=== PATIENT | male | born 1960 | race Caucasian/White ===

== ENCOUNTER 2017-07-28 22:36 | Inpatient (IN) | payer MEDICARE ==
[2017-07-28] MEDS ORDERED: SODIUM CHLORIDE 0.9% 500 ML IV STA (22:54)
--- NOTE | 2017-07-28 22:54 | ED ---
General Adult HPI - General Chief complaint: Overdose Stated complaint: Altered Mental Status Time Seen by Provider: 07/28/17 22:53 Source: family, EMS, RN notes reviewed, old records reviewed Mode of arrival: EMS Limitations: no limitations - History of Present Illness Initial comments: This is a 57-year-old male the ER for evaluation of unresponsiveness decreased responsiveness. Patient has history of depression. Denies suicide attempt tonight. Patient is does admit to taking increased amount of cervical. Patient denies suicide attempt again. Denies any other drugs or alcohol - Related Data Home Medications Medication Instructions Recorded Confirmed ALPRAZolam [Alprazolam] 0.5 mg PO BID 03/09/16 03/13/16 Citalopram Hydrobromide 40 mg PO QAM 03/09/16 03/13/16 [Citalopram HBr] Gabapentin [Gabapentin] 600 mg PO BID 03/09/16 03/13/16 QUEtiapine [SEROquel] 100 mg PO QAM 03/09/16 03/13/16 Allergies Allergy/AdvReac Type Severity Reaction Status Date / Time venom-honey bee Allergy Swelling Verified 03/09/16 12:43 [bee venom (honey bee)] Review of Systems ROS Statement: Those systems with pertinent positive or pertinent negative responses have been documented in the HPI. ROS Other: All systems not noted in ROS Statement are negative. Past Medical History Past Medical History: Hypertension Additional Past Medical History / Comment(s): Back pain. INSOMNIA. History of Any Multi-Drug Resistant Organisms: None Reported Past Surgical History: No Surgical Hx Reported Additional Past Surgical History / Comment(s): Pts admits that pt has had history of overdoses, (unaware if intentinonal) pt does have opoid abuse history. Pt is to test 3x weekly on serouquel. Past Anesthesia/Blood Transfusion Reactions: No Reported Reaction Additional Past Anesthesia/Blood Transfusion Reaction / Comment(s): NEVER HAS HAD ANESTHESIA. Past Psychological History: Anxiety, Bipolar, Depression Smoking Status: Current every day smoker Past Alcohol Use History: None Reported Past Drug Use History: Opiates, Prescription Drug Abuse - Past Family History Father Family Medical History: Coronary Artery Disease (CAD), Diabetes Mellitus Mother Family Medical History: Dementia General Exam Limitations: no limitations General appearance: alert, in no apparent distress Head exam: Present: atraumatic, normocephalic, normal inspection Eye exam: Present: normal appearance, PERRL, EOMI. Absent: scleral icterus, conjunctival injection, periorbital swelling ENT exam: Present: normal exam, mucous membranes moist Neck exam: Present: normal inspection. Absent: tenderness, meningismus, lymphadenopathy Respiratory exam: Present: normal lung sounds bilaterally. Absent: respiratory distress, wheezes, rales, rhonchi, stridor Cardiovascular Exam: Present: regular rate, normal rhythm, normal heart sounds. Absent: systolic murmur, diastolic murmur, rubs, gallop, clicks GI/Abdominal exam: Present: soft, normal bowel sounds. Absent: distended, tenderness, guarding, rebound, rigid Extremities exam: Present: normal inspection, full ROM, normal capillary refill. Absent: tenderness, pedal edema, joint swelling, calf tenderness Back exam: Present: normal inspection Neurological exam: Present: alert, oriented X3, CN II-XII intact Psychiatric exam: Present: normal affect, normal mood Skin exam: Present: warm, dry, intact, normal color. Absent: rash Course Vital Signs 07/28/17 22:38 Temperature 97.0 F L Pulse Rate 82 Respiratory 16 Rate Blood Pressure 143/56 O2 Sat by Pulse 96 Oximetry EKG Findings - EKG Comments: EKG Findings:: EKG shows sinus rhythm rate of 82, ME 162, QRS 70, QTc 446 Disposition Clinical Impression: Drug overdose, Depression Disposition: ADMITTED IP TO THIS HOSP Condition: Fair Referrals: Sheba Guerra MD [STAFF PHYSICIAN] - 1-2 days
[2017-07-28] MEDS ORDERED: SODIUM CHLORIDE 0.9% 1,000 ML IV ONE (23:17)
[2017-07-28 23:28] LABS: Basophils % (A) 1 %; Eosinophils # (A) 0.2 k/uL (0-0.7); Eosinophils % (A) 3 %; HCT 42.8 % (39.0-53.0); HGB 14.9 gm/dL (13.0-17.5); Lymphocytes % (A) 28 %; MCHC 34.8 g/dL (31.0-37.0); MCV 89.2 fL (80.0-100.0); Mean Platelet Volume 6.6; Monocytes # (A) 0.3 k/uL (0-1.0); Monocytes % (A) 4 %; Neutrophils # (A) 4.8 k/uL (1.3-7.7); Neutrophils % (A) 64 %; Platelet Count 258 k/uL (150-450); RDW 13.5 % (11.5-15.5); WBC 7.4 k/uL (3.8-10.6)
[2017-07-28 23:43] LABS: INR 1.1 (<1.2); Prothrombin Time 10.7 sec (9.0-12.0)
[2017-07-28 23:56] LABS: Amphetamine Screen,Urine Not Detected (NotDetected); Barbiturate Screen,Urine Not Detected (NotDetected); Benzodiazepines Screen,Urine Not Detected (NotDetected); Cocaine Screen,Urine Not Detected (NotDetected); Methadone Screen, Urine Not Detected (NotDetected); Opiate Screen,Urine Not Detected (NotDetected); Oxycodone Screen, Urine Not Detected (NotDetected); Phencyclidine Screen,Urine Not Detected (NotDetected); Tricyclic Antidepressant,Urine Detected (NotDetected); Urn Cannabinoid Scrn Not Detected (NotDetected)
--- NOTE | 2017-07-29 00:02 | CT ---
EXAMINATION TYPE: CT brain yuliana ellington con DATE OF EXAM: 07/28/2017 COMPARISON: Head CT scan 03/08/2013 HISTORY: AMS CT DLP: 2711.70 mGycm Automated exposure control for dose reduction was used. TECHNIQUE: CT scan of the head and cervical spine are performed without contrast. FINDINGS: Ventricles of normal size. There is no mass effect nor midline shift. There is no sign of intracranial hemorrhage. The calvarium is intact. Cervical vertebra have fairly normal alignment. There is anterior spurring from C4 to C7. Facet joint s are intact. Skull base is intact. There is no sign of a fracture. IMPRESSION: Negative CT scan of the brain. No change. Spondylotic changes in the cervical spine. No fracture.
[2017-07-29 00:37] LABS: ALT 21 U/L (21-72); AST 23 U/L (17-59); Acetaminophen <10.0 ug/mL; Albumin 3.4 g/dL (3.5-5.0); Alcohol <10 mg/dL; Alkaline Phosphatase 64 U/L (38-126); Anion Gap 8 mmol/L; Blood Urea Nitrogen 17 mg/dL (9-20); Calcium 8.9 mg/dL (8.4-10.2); Carbon Dioxide 27 mmol/L (22-30); Chloride 108 mmol/L (98-107); Glucose 99 mg/dL (74-99); Lipase 102 U/L (23-300); Potassium 4.1 mmol/L (3.5-5.1); Salicylate <1.0 mg/dL; Sodium 143 mmol/L (137-145); Total Bilirubin 0.4 mg/dL (0.2-1.3); Total Protein 6.1 g/dL (6.3-8.2)
[2017-07-29 01:16] LABS: Creatine Kinase MB 3.5 ng/mL (0.0-2.4); Troponin I 0.067 ng/mL (0.000-0.034)
[2017-07-29] MEDS ORDERED: AMINOPHYLLINE 500 MG/20 ML VIAL IV PRN (08:48)
[2017-07-29] MEDS ORDERED: REGADENOSON 0.4 MG/5 ML SYRINGE IV ONE (08:48)
[2017-07-29 09:02] VITALS: BMI 32.5
[2017-07-29] MEDS ORDERED: DOBUTamine DRIP for NUC MED 250 MG in DEXTROSE/WATER 1 250ML.BAG IV ONE (09:06)
[2017-07-29] MEDS ORDERED: ATROPINE SULFATE 0.1 MG/ML 10ML SYRINGE ONE (10:05)
--- NOTE | 2017-07-29 10:23 | CONS ---
BISHNU Mosley is a 57-year-old gentleman who is admitted to hospital with a drug overdose. Patient states that he has taken 4 pills of Seroquel. He states that he was not able to sleep well, taken 4 pills of Seroquel and has taken 4 pills of Seroquel because he was unable to sleep. He denies that he was trying to commit suicide. Patient denies chest pain, difficulty in breathing, palpitations, dizziness or syncope. EKG does not reveal any changes. Since being admitted for unclear reasons, he had troponins done and they came back elevated 0.06 and 0.07. His urine drug screen was positive for tricyclic antidepressants. PAST MEDICAL HISTORY: Significant for depression and prior suicidal ideation. MEDICATIONS: Include Seroquel, Toprol-XL, Suboxone, Neurontin, and citalopram. ALLERGIES: There are no known drug allergies. FAMILY HISTORY: Negative for premature coronary artery disease. SOCIAL HISTORY: Negative for current smoking, ETOH abuse or drug abuse. REVIEW OF SYSTEMS: HEENT is unremarkable. CARDIAC: As described above. RESPIRATORY: Negative. GI: Negative. GENITOURINARY: Negative. ALLERGY/IMMUNOLOGY: Negative. SKIN: Negative. MUSCULOSKELETAL: Significant for arthritis. PSYCHOSOCIAL: Negative. ENDOCRINE: Negative. DERM: Negative. CONSTITUTIONAL: Negative. ONCOLOGICAL: Negative. PSYCH/SOCIAL: Significant for drug overdose. Rest of the system review is not relevant. PHYSICAL EXAM: Comfortable at rest. Afebrile. Heart rate is 66, blood pressure is 148/80, respiratory rate is 18, O2 sat is 98% on room air. There is no jugular venous distention. Carotid upstroke is normal. There is no bruit. Chest exam reveals good air entry bilaterally. Heart exam reveals first and second heart sounds. No gallop. No murmur. No rub. Abdomen is soft, nontender. Exam of extremities did not reveal edema. Peripheral pulses felt. EKG is normal. LABS: Showed potassium of 4.1, creatinine is 0.9. Tropes are 0.06, 0.07. Hemoglobin is normal. ASSESSMENT: 1. Elevated troponin, probably related to drug overdose, could be due to supply-demand mismatch. 2. Drug overdose. PLAN: In this patient who does not have chest pain, difficulty in breathing, no EKG changes, I am going to obtain an echocardiogram to assess LV function and wall motion. Schedule him for a dobutamine echo to rule out ischemic heart disease and decide on further course of action. MMAWAL / IJN: [id number] /
--- NOTE | 2017-07-29 12:54 | ECHOF ---
Referral Reason:yes MEASUREMENTS -------- HEIGHT: 182.9 cm WEIGHT: 108.9 kg BP: RVIDd: 2.8 cm (< 3.3) IVSd: 1.2 cm (0.6 - 1.1) LVIDd: 4.1 cm (3.9 - 5.3) LVPWd: 1.0 cm (0.6 - 1.1) IVSs: 1.3 cm LVIDs: 3.1 cm LVPWs: 1.4 cm LA Diam: 3.3 cm (2.7 - 3.8) Ao Diam: 3.0 cm (2.0 - 3.7) AV Cusp: 2.1 cm (1.5 - 2.6) LA Diam: 4.5 cm (2.7 - 3.8) MV EXCURSION: 22.213 mm (> 18.000) MV EF SLOPE: 118 mm/s (70 - 150) EPSS: 0.5 cm MV E Sb: 0.55 m/s MV DecT: 231 ms MV A Sb: 0.62 m/s MV E/A Ratio: 0.90 FINDINGS -------- Sinus rhythm. This was a technically adequate study. The left ventricular size is normal. There is mild concentric left ventricular hypertrophy. Overa ll left ventricular systolic function is normal with, an EF between 55 - 60 %. The right ventricle is normal in size. The left atrial size is normal. The right atrial size is normal. The aortic valve is trileaflet, and appears structurally normal. No aortic stenosis or regurgitation. Mild mitral annular calcification present. Mild mitral regurgitation is present. Mild tricuspid regurgitation present. There is no evidence of pulmonary hypertension. The right v entricular systolic pressure, as measured by Doppler, is {RVSP}. There is no pulmonic regurgitation present. The aortic root size is normal. There is no pericardial effusion. CONCLUSIONS -------- 1. The left ventricular size is normal. 2. There is mild concentric left ventricular hypertrophy. 3. Overall left ventricular systolic function is normal with, an EF between 55 - 60 %. 4. The aortic valve is trileaflet, and appears structurally normal. No aortic stenosis or regurgitati on. 5. Mild mitral annular calcification present. 6. Mild mitral regurgitation is present. 7. Mild tricuspid regurgitation present. 8. There is no evidence of pulmonary hypertension. 9. The right ventricular systolic pressure, as measured by Doppler, is {RVSP}. 10. There is no pulmonic regurgitation present. 11. The aortic root size is normal. 12. There is no pericardial effusion. SUPERINTENDENT MARINE: Katiana Easley RDCS
--- NOTE | 2017-07-29 13:52 | P.CN ---
Psychiatric Consult - . Consult date: 07/29/17 Consult:: 07/29/17 13:42 Patient was seen for a psychiatry consult regarding his recent "overdose"on Seroquel. Patient reported that he has not been taking Xanax anymore and so his psychiatrist increased his Seroquel from 200 mg at bedtime to 400 mg at bedtime. But he thought it was only 200 mg tablet and so he took 2 of them which resulted in an overdose. Apparently after that he started to feel extremely nervous, sweaty and got scared. So he decided to come to the ER. He insists it was an accident and not an intentional overdose. He insists that he never thought about suicide and does not want to kill himself. He said he lives with his and they get along well. They did not get into any argument or fight. He denies any major stressors in his life. He is disabled and does not work anymore. He stays home with his . Patient said he is diagnosed with bipolar disorder, was seeing Dr. Mata, but, now he sees Dr. Gray. He is on Seroquel Celexa Neurontin and also on Suboxone. His drug screening was positive only for tricyclic antidepressants and not for benzodiazepines or any other drug. His CK 2 is elevated along with troponin. Patient was seen in his bed in the emergency room. He is polite and cooperative. He does not show any psychomotor agitation or retardation. His speech is spontaneous relevant and goal-directed. His mood is mildly anxious and affect is appropriate to the thought content. He denies hallucinations and delusional thinking. He insists that he was never suicidal and he is not suicidal. He also insists that he does not want to kill himself or . He denies homicidal ideas also. He is well oriented with adequate memory concentration general knowledge etc. His insight seems to be adequate and judgment is questionable as evidenced by accidentally taking more Seroquel than prescribed. Assessment: Patient insists that he is not suicidal and does not want to kill himself. I do not see any sign of suicidality. Suggestion: Patient may be discharged when he is medically cleared. I would recommend not to prescribe any psychiatric medications when he is discharged from the ER including Seroquel Xanax Neurontin etc. Patient was advised to discuss with his psychiatrist and discontinue Celexa. Prescribing Suboxone Xanax and Seroquel to this patient can be dangerous.
--- NOTE | 2017-07-29 14:05 | ECHOS ---
STRESS ECHOCARDIOGRAM INDICATIONS: Chest pain. BASELINE HEART RATE: 64 BASELINE BLOOD PRESSURE: 154/83 MAXIMUM HEART RATE: 149 MAXIMUM BLOOD PRESSURE: 154/83 85% MPHR: 139 100% MPHR: 164 MAXIMUM STAGE REACHED: 5 TOTAL EXERCISE TIME: 13:30 CLINICAL INFORMATION: Baseline EKG revealed a sinus mechanism without significant ST-T changes with dobutamine administration as per protocol and additionally had atropine administration. Heart rate went up to 149 beats per minute. Patient did not have any significant symptoms. EKG did not reveal any ST-segment changes to indicate ischemia. By EKG criteria, this is a negative dobutamine stress test. Baseline echo image revealed normal wall motion and wall thickening of all segments. At peak exercise, there was good augmentation referring to wall motion and wall thickening of all segments suggesting that there is no evidence of any stress-induced ischemia on this study. IMPRESSION: 1. By EKG criteria, this is an unremarkable dobutamine stress test by EKG criteria. 2. Normal dobutamine stress echocardiogram without evidence of ischemia. MMODL / IJN: [id number] /
[2017-07-29] MEDS ORDERED: METOPROLOL SUCCINATE (ER) 25 MG TAB.ER.24H PO SCH (16:00)
[2017-07-29] MEDS ORDERED: NICOTINE 21MG/24HR PATCH TRANSDERM SCH (16:00)
[2017-07-29] MEDS ORDERED: GABAPENTIN 300 MG CAP PO SCH (16:00)
[2017-07-29 16:02] VITALS: BP 130/68; PULSE 73; RESP 18; TEMP 97.4
--- NOTE | 2017-07-29 16:50 | HP ---
HISTORY AND PHYSICAL DATE OF ADMISSION: 07/28/17 PRESENTING COMPLAINT: Unresponsive. HISTORY OF PRESENTING COMPLAINT: This is a 57-year-old patient of Dr. Pack. Chronic stable medical conditions include hypertension, chronic back pain, bipolar disorder. The patient was brought in through the ER. The patient was having trouble sleeping and decided to take at least 4 Seroquel pills. He gets 400 mg of those. The patient is somewhat became unresponsive. called the the EMS, hence he was brought down to the ER. The patient states that he was taking his pills as he was not depressed, was not really trying to kill himself, just simply wanted to sleep. The patient was noted to have a troponin leak in the ER for which Cardiology was consulted. The patient denies any chest pain. The patient emphasized again he was not trying to kill himself. The patient does follow with Dr. Mata from Psychiatry as an outpatient. The patient is a smoker. REVIEW OF SYSTEMS: Constitutional tired. HEENT: None. RESPIRATORY: Occasional wheezing and coughing. Cardiovascular: No chest pain. Gastrointestinal none. Genitourinary none. Musculoskeletal: Chronic back pain. Dermatological, hematologic, lymphatic none. Psychiatry depressed. Controlled. Neurological no focal weakness. PAST MEDICAL HISTORY: Hypertension, chronic low back pain, insomnia, bipolar disorder. PAST SURGICAL HISTORY: None. PSYCH HISTORY: Bipolar disorder. SOCIAL HISTORY: Smokes about a pack a day for many years. Denies alcohol. The patient is not working. FAMILY HISTORY: Coronary artery disease and diabetes. HOME MEDICATIONS: 1. Seroquel 400 mg p.o. daily. 2. Toprol-XL 25 mg a day. 3. Suboxone E/2 1 film sublingual b.i.d. 4. Gabapentin 600 mg b.i.d. 5. Celexa 40 mg p.o. daily. ALLERGIES: BEE VENOM. PHYSICAL EXAMINATION: Vital signs on presentation: Temperature 97, pulse 80, respiration 16, blood pressure 143/56, pulse ox 96% on 2 L. General appearance: Well built. BMI 32.5, lying in bed, awake, tired-appearing, eyes pupils are equal. Conjunctivae normal. HEENT external appearance of nose and ears normal. Oral cavity normal. Neck JVD unable to assess. Mass not palpable. Respiratory effort increased. Lungs slightly decreased breath sounds. Cardiovascular 1st and 2nd sounds normal. No edema. ABDOMEN: Distended, soft. Liver and spleen not palpable. No mass palpable. Lymphatics: No lymph nodes palpable in neck and axillae. Psychiatry: Alert and oriented times three. Mood and affect slightly anxious- appearing, not suicidal. Neurological: Pupils equal. No facial asymmetry. Power and sensation grossly intact. Pulses grossly intact. INVESTIGATIONS: White count 7.4, hemoglobin 14.9, potassium 4.1, troponin 0.067, 0.079. Urine drug screen positive for tricyclic antidepressants. Negative for alcohol, acetaminophen or salicylates. EKG shows normal sinus rhythm. CT scan of the brain negative with some spondylotic changes on cervical spine. ASSESSMENT: 1. Acute severe metabolic encephalopathy from patient overdosing with Seroquel, intention to go to sleep, but not suicidal. 2. Bipolar disorder. The patient denies any suicidal ideation. 3. Obesity; BMI 32.5. 4. Chronic nicotine dependence, patient is a cigarette smoker. 5. Essential hypertension. 6. Chronic insomnia idiopathic, it could be a side effect of Suboxone 2. 7. Chronic low back pain probably from arthritis. PLAN: Cardiology was consulted who ordered a stress echocardiogram. Psychiatry was also consulted. The patient's home medications were held pending evaluation by Psychiatry. Smoking cessation counseling was done with the patient who was told that the patient may be having early signs of emphysema. I will order a chest x-ray and counseling was done. When stable will give nicotine patch. This was done for more than [address] Pack. FELIX / EFEN: [id number] /
--- NOTE | 2017-07-29 19:20 | XR ---
EXAMINATION TYPE: XR chest 2V DATE OF EXAM: 07/29/2017 COMPARISON: NONE HISTORY: Altered mental status TECHNIQUE: Frontal and lateral views of the chest are obtained. FINDINGS: Heart and mediastinum are normal. Lungs are clear of consolidation. There is coarsening of the lung markings at the lung bases. There is no pleural effusion. Bony thorax is intact. IMPRESSION: Fibrotic changes at the lung bases. No pulmonary consolidation or heart failure.
--- NOTE | 2017-07-30 00:32 | DS ---
DISCHARGE SUMMARY FINAL DIAGNOSES: 1. Acute severe metabolic encephalopathy from overdose with Seroquel. No intention of suicide. 2. Bipolar disorder. The patient is stable from that standpoint. Denies suicidal ideation. 3. Obesity; BMI 32.5. 4. Chronic nicotine dependence. The patient is a cigarette smoker. 5. Essential hypertension. 6. Chronic insomnia idiopathic. 7. Chronic low back pain probably from osteoarthritis. CONSULTATION: Dr. Sherwin South from Cardiology and Dr. Pruitt from Psychiatry. HOSPITAL COURSE: This patient presented after being found unresponsive by the . The patient had taken some Seroquel overdose of the pills, wanted to go to sleep, but denied any suicidal ideation or depression exacerbation. The patient was seen by Dr. Pruitt from Psychiatry who stopped the patient's Seroquel and Xanax and he also wanted him to discuss with the psychiatrist about discontinuing the Celexa. It is also his opinion that prescribing Suboxone will be dangerous for him. Hence, this will be discontinued. The patient is counseled against smoking. On examination: PSYCH: A and O x3. LUNGS: Slightly decreased breath sounds. ADDITIONAL HOSPITAL COURSE: The patient also had some troponin leak and seen by Cardiology. The patient did undergo dobutamine stress echocardiogram that came back to be negative. 2D echocardiogram is also essentially unremarkable. DISCHARGE MEDICATIONS: 1. Celexa 40 mg a day. 2. Nicotine 20 mg patch. 3. Neurontin 600 mg b.i.d. 4. Toprol-XL 25 mg a day. 5. Melatonin 5 mg p.o. q.h.s. 6. Nicotine 21 mg patch. FOLLOWUP: Follow up with Dr. Mata, his psychiatrist in 1 to 2 days. Follow up with Dr. Renan Pack on 07/30/2017 to discuss his medications. MMODL / IJN: [id number] /
== END 2017-07-29 19:15 | disposition home or self-care (01) | DRG 917 ==
LOC: EC 22:36 → 6SEL 23:17
PROVIDERS: ADMIT Hospitalist; ATTEND Hospitalist
DX: T43.591A Poisoning by other antipsychotics and neuroleptics, accidental (unintentional), initial encounter (principal); G92 Toxic encephalopathy; F31.9 Bipolar disorder, unspecified; F41.9 Anxiety disorder, unspecified; G89.29 Other chronic pain; F51.01 Primary insomnia; I10 Essential (primary) hypertension; M19.91 Primary osteoarthritis, unspecified site; F17.210 Nicotine dependence, cigarettes, uncomplicated; E66.9 Obesity, unspecified; M54.5 Low back pain; R74.8 Abnormal levels of other serum enzymes; Z68.32 Body mass index [BMI] 32.0-32.9, adult; Z79.899 Other long term (current) drug therapy; Z91.030 Bee allergy status; Y92.009 Unspecified place in unspecified non-institutional (private) residence as the place of occurrence of the external cause
CPT/HCPCS: 36415; 51702; 70450; 71046; 72125; 80053; 80306; 80320; 82550; 82553; 83520; 83690; 84484; 85025; 85610; 93005; 93017; 93306; 93350; 96360; 96361; 99285

== ENCOUNTER → 2017-10-24 | Outpatient (CLI) | payer MEDICARE ==
--- NOTE | 2017-10-25 04:09 | MR ---
EXAMINATION TYPE: MR ankle RT wo con DATE OF EXAM: 10/24/2017 COMPARISON: NONE HISTORY: Pain and swelling Standard multiplanar, multisequence MRI departmental protocol Multiplanar, multisequence images of the right ankle were acquired. FINDINGS: The Achilles tendon is intact. Plantar fascia is intact. The medial and lateral flexor tend ons of the ankle are intact. There is subcutaneous edema around the ankle joint and also around the a nterior forefoot. There is a small subtalar joint effusion. There is small plantar calcaneal spur. I see no bony destructive process. There is no evidence of a fracture. Ankle mortise is anatomic. The c ollateral ligaments appear intact. IMPRESSION: Subcutaneous edema and swelling around the ankle and anterior forefoot. No fracture. Plantar calcanea l spur. Mild subtalar joint effusion and small cystic fluid collections lateral to the subtalar joint consistent with synovitis and synovial cysts.
== END | disposition home or self-care (01) ==
LOC: RADMRIMAIN 21:44
PROVIDERS: ATTEND Family Medicine
DX: M77.31 Calcaneal spur, right foot (principal); M25.461 Effusion, right knee; R60.0 Localized edema

== ENCOUNTER 2017-12-15 12:11 | Observation (INO) | payer MEDICARE ==
[2017-12-15] MEDS ORDERED: SODIUM CHLORIDE 0.9% 1,000 ML IV STA (12:35)
--- NOTE | 2017-12-15 13:02 | ED ---
Overdose HPI - General Chief Complaint: Overdose Stated Complaint: Overdose Time Seen by Provider: 12/15/17 12:15 Source: patient, EMS, RN notes reviewed, old records reviewed Mode of arrival: EMS Limitations: no limitations - History of Present Illness Initial Comments: this is a 57-year-old male presents emergency department today with baclofen overdose and possible Suboxone overdose. Patient has been acting abnormal with his family over the past 3 days. reports that she caught him eating raw chicken and has had a weird affect. Patient has been found somewhat lethargic and unresponsive today and the called EMS. They administered 2 g of Narcan and Patient became somewhat alert and oriented. Patient reports that he's been vomiting multiple times over the past 2 days. Patient states that he took approximately 20 baclofen yesterday evening. However with pill bottle count is possibility that he took 86 baclofen. He had approximately 90 slipped of Suboxone filled on 12-04. They are all missing, meaning patient may have taken 45. Patient will be petitioned by due to abnormal behavior for the past 2 days. - Related Data Home Medications Medication Instructions Recorded Confirmed Gabapentin 600 mg PO QID 03/09/16 12/15/17 Metoprolol Succinate (ER) [Toprol 25 mg PO DAILY 07/28/17 12/15/17 XL] Baclofen 20 mg PO QID PRN 12/15/17 12/15/17 Buprenorphine HCl/Naloxone HCl 8 mg SUBLINGUAL TID 12/15/17 12/15/17 [Suboxone 8 mg-2 mg Sl Film] Finasteride 1 mg PO DAILY 12/15/17 12/15/17 Naproxen [Naprosyn] 500 mg PO BID 12/15/17 12/15/17 QUEtiapine [SEROquel] 400 mg PO DAILY 12/15/17 12/15/17 Previous Rx's Medication Instructions Recorded Citalopram Hydrobromide [CeleXA] 40 mg PO DAILY #1 tab 07/29/17 Melatonin 5 mg PO HS #1 tablet 07/29/17 Allergies Allergy/AdvReac Type Severity Reaction Status Date / Time venom-honey bee Allergy Swelling Verified 12/15/17 12:14 [bee venom (honey bee)] Review of Systems ROS Statement: Those systems with pertinent positive or pertinent negative responses have been documented in the HPI. ROS Other: All systems not noted in ROS Statement are negative. Past Medical History Past Medical History: Hypertension Additional Past Medical History / Comment(s): Back pain. INSOMNIA. History of Any Multi-Drug Resistant Organisms: None Reported Past Surgical History: No Surgical Hx Reported Additional Past Surgical History / Comment(s): Pts admits that pt has had history of overdoses, (unaware if intentinonal) pt does have opoid abuse history. Pt is to test 3x weekly on serouquel. Past Anesthesia/Blood Transfusion Reactions: No Reported Reaction Additional Past Anesthesia/Blood Transfusion Reaction / Comment(s): NEVER HAS HAD ANESTHESIA. Past Psychological History: Anxiety, Bipolar, Depression Smoking Status: Current every day smoker Past Alcohol Use History: None Reported Past Drug Use History: Opiates, Prescription Drug Abuse - Past Family History Father Family Medical History: Coronary Artery Disease (CAD), Diabetes Mellitus Mother Family Medical History: Dementia General Exam - General Exam Comments Initial Comments: this is a 57-year-old male. ALERT. Strange affect. Patient seems to think that this is a joke. Limitations: no limitations General appearance: alert, in no apparent distress Head exam: Present: atraumatic, normocephalic, normal inspection Eye exam: Present: normal appearance, PERRL, EOMI. Absent: scleral icterus, conjunctival injection, periorbital swelling ENT exam: Present: normal exam, mucous membranes moist Neck exam: Present: normal inspection. Absent: tenderness, meningismus, lymphadenopathy Respiratory exam: Present: normal lung sounds bilaterally. Absent: respiratory distress, wheezes, rales, rhonchi, stridor Cardiovascular Exam: Present: regular rate, normal rhythm, normal heart sounds. Absent: systolic murmur, diastolic murmur, rubs, gallop, clicks GI/Abdominal exam: Present: soft, normal bowel sounds. Absent: distended, tenderness, guarding, rebound, rigid Extremities exam: Present: normal inspection, full ROM, normal capillary refill. Absent: tenderness, pedal edema, joint swelling, calf tenderness Back exam: Present: normal inspection Neurological exam: Present: alert, oriented X3, CN II-XII intact, normal gait Psychiatric exam: Present: normal mood, manic (Patient was eating raw chicken yesterday. Has a strange smile and abnormal affect. Patient seems to think that these things are a joke.). Absent: normal affect Skin exam: Present: warm, dry, intact, normal color. Absent: rash Course Vital Signs 12/15/17 12:14 Temperature 98.1 F Pulse Rate 55 L Respiratory 18 Rate Blood Pressure 163/77 O2 Sat by Pulse 95 Oximetry Medical Decision Making - Medical Decision Making 57-year-old male with recent baclofen overdose. He could've possibly taken approximately 86 baclofen tablets. Also question 45 Suboxone tablets are missing. He has been acting abnormal for the past 3 days according to . She is concerned about his mental health amount being petitioned the Patient. Patient started on IV fluids and lab work obtained. Lab work initially is unremarkable. EKG shows no acute changes. His poison control was contacted with unknown time of ingestion the baclofen they do not wanted to take activated charcoal. However Patient does need been admitted for monitoring for the next day, monitoring his airway. I discussed the case with Dr. Graves, the Patient for selective as well as consult psych. - Lab Data Result diagrams: 12/15/17 12:25 12/15/17 13:23 Lab Results 12/15/17 12/15/17 12/15/17 Range/Units 12:25 12:25 13:23 WBC 11.0 H (3.8-10.6) k/uL RBC 5.27 (4.30-5.90) m/uL Hgb 16.0 (13.0-17.5) gm/dL Hct 48.7 (39.0-53.0) % MCV 92.4 (80.0-100.0) fL MCH 30.4 (25.0-35.0) pg MCHC 33.0 (31.0-37.0) g/dL RDW 13.1 (11.5-15.5) % Plt Count 302 (150-450) k/uL Neutrophils % 73 % Lymphocytes % 18 % Monocytes % 7 % Eosinophils % 1 % Basophils % 0 % Neutrophils # 8.1 H (1.3-7.7) k/uL Lymphocytes # 2.0 (1.0-4.8) k/uL Monocytes # 0.7 (0-1.0) k/uL Eosinophils # 0.1 (0-0.7) k/uL Basophils # 0.0 (0-0.2) k/uL PT 10.7 (9.0-12.0) sec INR 1.1 (<1.2) Sodium (137-145) mmol/L Potassium (3.5-5.1) mmol/L Chloride (98-107) mmol/L Carbon Dioxide (22-30) mmol/L Anion Gap mmol/L BUN (9-20) mg/dL Creatinine (0.66-1.25) mg/dL Est GFR (CKD-EPI)AfAm (>60 ml/min/1.73 sqM) Est GFR (CKD-EPI)NonAf (>60 ml/min/1.73 sqM) Glucose (74-99) mg/dL Calcium (8.4-10.2) mg/dL Total Bilirubin (0.2-1.3) mg/dL AST (17-59) U/L ALT (21-72) U/L Alkaline Phosphatase (38-126) U/L Troponin I <0.012 (0.000-0.034) ng/mL Total Protein (6.3-8.2) g/dL Albumin (3.5-5.0) g/dL Urine Color Urine Appearance (Clear) Urine pH (5.0-8.0) Ur Specific [place] (1.001-1.035) Urine Protein (Negative) Urine Glucose (UA) (Negative) Urine Ketones (Negative) Urine Blood (Negative) Urine Nitrite (Negative) Urine Bilirubin (Negative) Urine Urobilinogen (<2.0) mg/dL Ur Leukocyte Esterase (Negative) Salicylates mg/dL Urine Opiates Screen (NotDetected) Ur Oxycodone Screen (NotDetected) Urine Methadone Screen (NotDetected) Ur Propoxyphene Screen (NotDetected) Acetaminophen ug/mL Ur Barbiturates Screen (NotDetected) U Tricyclic Antidepress (NotDetected) Ur Phencyclidine Scrn (NotDetected) Ur Amphetamines Screen (NotDetected) U Methamphetamines Scrn (NotDetected) U Benzodiazepines Scrn (NotDetected) Urine Cocaine Screen (NotDetected) U Marijuana (THC) Screen (NotDetected) Serum Alcohol mg/dL 12/15/17 12/15/17 Range/Units 13:23 14:15 WBC (3.8-10.6) k/uL RBC (4.30-5.90) m/uL Hgb (13.0-17.5) gm/dL Hct (39.0-53.0) % MCV (80.0-100.0) fL MCH (25.0-35.0) pg MCHC (31.0-37.0) g/dL RDW (11.5-15.5) % Plt Count (150-450) k/uL Neutrophils % % Lymphocytes % % Monocytes % % Eosinophils % % Basophils % % Neutrophils # (1.3-7.7) k/uL Lymphocytes # (1.0-4.8) k/uL Monocytes # (0-1.0) k/uL Eosinophils # (0-0.7) k/uL Basophils # (0-0.2) k/uL PT (9.0-12.0) sec INR (<1.2) Sodium 143 (137-145) mmol/L Potassium 4.3 (3.5-5.1) mmol/L Chloride 111 H (98-107) mmol/L Carbon Dioxide 27 (22-30) mmol/L Anion Gap 5 mmol/L BUN 21 H (9-20) mg/dL Creatinine 0.85 (0.66-1.25) mg/dL Est GFR (CKD-EPI)AfAm >90 (>60 ml/min/1.73 sqM) Est GFR (CKD-EPI)NonAf >90 (>60 ml/min/1.73 sqM) Glucose 94 (74-99) mg/dL Calcium 8.9 (8.4-10.2) mg/dL Total Bilirubin 0.8 (0.2-1.3) mg/dL AST 26 (17-59) U/L ALT 25 (21-72) U/L Alkaline Phosphatase 74 (38-126) U/L Troponin I (0.000-0.034) ng/mL Total Protein 6.7 (6.3-8.2) g/dL Albumin 4.0 (3.5-5.0) g/dL Urine Color Yellow Urine Appearance Clear (Clear) Urine pH 7.5 (5.0-8.0) Ur Specific [place] 1.026 (1.001-1.035) Urine Protein Trace H (Negative) Urine Glucose (UA) Negative (Negative) Urine Ketones 1+ H (Negative) Urine Blood Negative (Negative) Urine Nitrite Negative (Negative) Urine Bilirubin Negative (Negative) Urine Urobilinogen <2.0 (<2.0) mg/dL Ur Leukocyte Esterase Negative (Negative) Salicylates <1.0 mg/dL Urine Opiates Screen Not Detected (NotDetected) Ur Oxycodone Screen Not Detected (NotDetected) Urine Methadone Screen Not Detected (NotDetected) Ur Propoxyphene Screen Not Detected (NotDetected) Acetaminophen <10.0 ug/mL Ur Barbiturates Screen Not Detected (NotDetected) U Tricyclic Antidepress Not Detected (NotDetected) Ur Phencyclidine Scrn Not Detected (NotDetected) Ur Amphetamines Screen Not Detected (NotDetected) U Methamphetamines Scrn Not Detected (NotDetected) U Benzodiazepines Scrn Not Detected (NotDetected) Urine Cocaine Screen Not Detected (NotDetected) U Marijuana (THC) Screen Not Detected (NotDetected) Serum Alcohol <10 mg/dL Disposition Clinical Impression: Drug overdose, Manic behavior, Adjustment reaction Disposition: ADMITTED IP TO THIS [facility] Condition: Stable Is patient prescribed a controlled substance at d/c from ED?: No Referrals: Davidson Pack MD [Primary Care Provider] - 1-2 days Time of Disposition: 14:59
[2017-12-15 13:03] LABS: Basophils % (A) 0 %; Eosinophils # (A) 0.1 k/uL (0-0.7); Eosinophils % (A) 1 %; HCT 48.7 % (39.0-53.0); Lymphocytes % (A) 18 %; MCH 30.4 pg (25.0-35.0); MCV 92.4 fL (80.0-100.0); Mean Platelet Volume 6.8; Monocytes # (A) 0.7 k/uL (0-1.0); Monocytes % (A) 7 %; Neutrophils # (A) 8.1 k/uL (1.3-7.7); Neutrophils % (A) 73 %; Platelet Count 302 k/uL (150-450); RBC 5.27 m/uL (4.30-5.90); RDW 13.1 % (11.5-15.5)
[2017-12-15 13:35] LABS: INR 1.1 (<1.2)
[2017-12-15 13:36] LABS: Prothrombin Time 10.7 sec (9.0-12.0)
[2017-12-15 13:47] LABS: Acetaminophen <10.0 ug/mL; Alcohol <10 mg/dL; Anion Gap 5 mmol/L; Calcium 8.9 mg/dL (8.4-10.2); Carbon Dioxide 27 mmol/L (22-30); Chloride 111 mmol/L (98-107); Glucose 94 mg/dL (74-99); Salicylate <1.0 mg/dL; Sodium 143 mmol/L (137-145); Total Bilirubin 0.8 mg/dL (0.2-1.3); Total Protein 6.7 g/dL (6.3-8.2)
[2017-12-15 13:54] LABS: ALT 25 U/L (21-72); AST 26 U/L (17-59); Alkaline Phosphatase 74 U/L (38-126); Blood Urea Nitrogen 21 mg/dL (9-20); Potassium 4.3 mmol/L (3.5-5.1)
[2017-12-15 14:32] LABS: Appearance,Urine Clear (Clear); Bilirubin,Urine Negative (Negative); Blood,Urine Negative (Negative); Color,Urine Yellow; Glucose,Urine (UA) Negative (Negative); Ketones,Urine 1+ (Negative); Leukocyte Esterase,Urine Negative (Negative); Nitrite,Urine Negative (Negative); PH, Urine 7.5 (5.0-8.0); Protein,Urine Trace (Negative); Specific Gravity,Urine 1.026 (1.001-1.035); Urobilinogen,Urine <2.0 mg/dL (<2.0)
[2017-12-15 14:44] LABS: Amphetamine Screen,Urine Not Detected (NotDetected); Barbiturate Screen,Urine Not Detected (NotDetected); Benzodiazepines Screen,Urine Not Detected (NotDetected); Cocaine Screen,Urine Not Detected (NotDetected); Methadone Screen, Urine Not Detected (NotDetected); Opiate Screen,Urine Not Detected (NotDetected); Oxycodone Screen, Urine Not Detected (NotDetected); Phencyclidine Screen,Urine Not Detected (NotDetected); Tricyclic Antidepressant,Urine Not Detected (NotDetected); Urn Cannabinoid Scrn Not Detected (NotDetected)
[2017-12-15] MEDS ORDERED: NALOXONE 0.4 MG/ML 1 ML VIAL IV PRN (15:01)
[2017-12-15] MEDS ORDERED: IBUPROFEN 400 MG TAB PO PRN (15:01)
[2017-12-15] MEDS ORDERED: KETOROLAC 30 MG/ML 1 ML VIAL IVP PRN (15:01)
[2017-12-15] MEDS ORDERED: ONDANSETRON 4 MG/2 ML VIAL IVP PRN (15:01)
[2017-12-15] MEDS ORDERED: ACETAMINOPHEN TAB 325 MG TAB PO PRN (15:01)
--- NOTE | 2017-12-15 16:17 | ED ---
Medical Decision Making - Lab Data Result diagrams: 12/15/17 12:25 12/15/17 13:23 Lab Results 12/15/17 12/15/17 12/15/17 Range/Units 12:25 12:25 13:23 WBC 11.0 H (3.8-10.6) k/uL RBC 5.27 (4.30-5.90) m/uL Hgb 16.0 (13.0-17.5) gm/dL Hct 48.7 (39.0-53.0) % MCV 92.4 (80.0-100.0) fL MCH 30.4 (25.0-35.0) pg MCHC 33.0 (31.0-37.0) g/dL RDW 13.1 (11.5-15.5) % Plt Count 302 (150-450) k/uL Neutrophils % 73 % Lymphocytes % 18 % Monocytes % 7 % Eosinophils % 1 % Basophils % 0 % Neutrophils # 8.1 H (1.3-7.7) k/uL Lymphocytes # 2.0 (1.0-4.8) k/uL Monocytes # 0.7 (0-1.0) k/uL Eosinophils # 0.1 (0-0.7) k/uL Basophils # 0.0 (0-0.2) k/uL PT 10.7 (9.0-12.0) sec INR 1.1 (<1.2) Sodium (137-145) mmol/L Potassium (3.5-5.1) mmol/L Chloride (98-107) mmol/L Carbon Dioxide (22-30) mmol/L Anion Gap mmol/L BUN (9-20) mg/dL Creatinine (0.66-1.25) mg/dL Est GFR (CKD-EPI)AfAm (>60 ml/min/1.73 sqM) Est GFR (CKD-EPI)NonAf (>60 ml/min/1.73 sqM) Glucose (74-99) mg/dL Calcium (8.4-10.2) mg/dL Total Bilirubin (0.2-1.3) mg/dL AST (17-59) U/L ALT (21-72) U/L Alkaline Phosphatase (38-126) U/L Troponin I <0.012 (0.000-0.034) ng/mL Total Protein (6.3-8.2) g/dL Albumin (3.5-5.0) g/dL Urine Color Urine Appearance (Clear) Urine pH (5.0-8.0) Ur Specific [place] (1.001-1.035) Urine Protein (Negative) Urine Glucose (UA) (Negative) Urine Ketones (Negative) Urine Blood (Negative) Urine Nitrite (Negative) Urine Bilirubin (Negative) Urine Urobilinogen (<2.0) mg/dL Ur Leukocyte Esterase (Negative) Salicylates mg/dL Urine Opiates Screen (NotDetected) Ur Oxycodone Screen (NotDetected) Urine Methadone Screen (NotDetected) Ur Propoxyphene Screen (NotDetected) Acetaminophen ug/mL Ur Barbiturates Screen (NotDetected) U Tricyclic Antidepress (NotDetected) Ur Phencyclidine Scrn (NotDetected) Ur Amphetamines Screen (NotDetected) U Methamphetamines Scrn (NotDetected) U Benzodiazepines Scrn (NotDetected) Urine Cocaine Screen (NotDetected) U Marijuana (THC) Screen (NotDetected) Serum Alcohol mg/dL 12/15/17 12/15/17 Range/Units 13:23 14:15 WBC (3.8-10.6) k/uL RBC (4.30-5.90) m/uL Hgb (13.0-17.5) gm/dL Hct (39.0-53.0) % MCV (80.0-100.0) fL MCH (25.0-35.0) pg MCHC (31.0-37.0) g/dL RDW (11.5-15.5) % Plt Count (150-450) k/uL Neutrophils % % Lymphocytes % % Monocytes % % Eosinophils % % Basophils % % Neutrophils # (1.3-7.7) k/uL Lymphocytes # (1.0-4.8) k/uL Monocytes # (0-1.0) k/uL Eosinophils # (0-0.7) k/uL Basophils # (0-0.2) k/uL PT (9.0-12.0) sec INR (<1.2) Sodium 143 (137-145) mmol/L Potassium 4.3 (3.5-5.1) mmol/L Chloride 111 H (98-107) mmol/L Carbon Dioxide 27 (22-30) mmol/L Anion Gap 5 mmol/L BUN 21 H (9-20) mg/dL Creatinine 0.85 (0.66-1.25) mg/dL Est GFR (CKD-EPI)AfAm >90 (>60 ml/min/1.73 sqM) Est GFR (CKD-EPI)NonAf >90 (>60 ml/min/1.73 sqM) Glucose 94 (74-99) mg/dL Calcium 8.9 (8.4-10.2) mg/dL Total Bilirubin 0.8 (0.2-1.3) mg/dL AST 26 (17-59) U/L ALT 25 (21-72) U/L Alkaline Phosphatase 74 (38-126) U/L Troponin I (0.000-0.034) ng/mL Total Protein 6.7 (6.3-8.2) g/dL Albumin 4.0 (3.5-5.0) g/dL Urine Color Yellow Urine Appearance Clear (Clear) Urine pH 7.5 (5.0-8.0) Ur Specific [place] 1.026 (1.001-1.035) Urine Protein Trace H (Negative) Urine Glucose (UA) Negative (Negative) Urine Ketones 1+ H (Negative) Urine Blood Negative (Negative) Urine Nitrite Negative (Negative) Urine Bilirubin Negative (Negative) Urine Urobilinogen <2.0 (<2.0) mg/dL Ur Leukocyte Esterase Negative (Negative) Salicylates <1.0 mg/dL Urine Opiates Screen Not Detected (NotDetected) Ur Oxycodone Screen Not Detected (NotDetected) Urine Methadone Screen Not Detected (NotDetected) Ur Propoxyphene Screen Not Detected (NotDetected) Acetaminophen <10.0 ug/mL Ur Barbiturates Screen Not Detected (NotDetected) U Tricyclic Antidepress Not Detected (NotDetected) Ur Phencyclidine Scrn Not Detected (NotDetected) Ur Amphetamines Screen Not Detected (NotDetected) U Methamphetamines Scrn Not Detected (NotDetected) U Benzodiazepines Scrn Not Detected (NotDetected) Urine Cocaine Screen Not Detected (NotDetected) U Marijuana (THC) Screen Not Detected (NotDetected) Serum Alcohol <10 mg/dL - EKG Data EKG Comments: EKG shows sinus bradycardia, otherwise normal EKG. Ventricular rate 56 bpm. 52. QRS ration 70. QT QTc is 432/460 ms. Disposition Clinical Impression: Drug overdose, Manic behavior, Adjustment reaction Disposition: ADMITTED IP TO THIS HOSP Condition: Stable
[2017-12-15] MEDS ORDERED: LORazepam 2 MG/ML INJ IV PRN (18:25)
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
[2017-12-15] MEDS: SODIUM CHLORIDE 0.9% 1,000 ML IV SCH (18:50)
[2017-12-15 18:53] VITALS: BMI 17.6
[2017-12-15] MEDS: NAPROXEN 250 MG TAB PO SCH (20:49)
[2017-12-15] MEDS: NICOTINE 21MG/24HR PATCH TRANSDERM SCH (20:50)
[2017-12-15] MEDS: MELATONIN 5 MG TABLET PO SCH (20:50)
[2017-12-16] MEDS: SODIUM CHLORIDE 0.9% 1,000 ML IV SCH ×3 (03:12→21:30)
[2017-12-16] MEDS ORDERED: QUEtiapine 400 MG TAB PO SCH (09:00)
[2017-12-16] MEDS: METOPROLOL SUCCINATE (ER) 25 MG TAB.ER.24H PO SCH (09:17)
[2017-12-16] MEDS: CITALOPRAM HYDROBROMIDE 20 MG TAB PO SCH (09:17)
[2017-12-16] MEDS: NICOTINE 21MG/24HR PATCH TRANSDERM SCH (09:18)
[2017-12-16] MEDS: NAPROXEN 250 MG TAB PO SCH ×2 (09:18→20:49)
[2017-12-16] MEDS: PANTOPRAZOLE 40 MG/10 ML VIAL IV SCH (09:18)
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
[2017-12-16] MEDS: FINASTERIDE 1 MG PO SCH (19:04)
[2017-12-16] MEDS: MELATONIN 5 MG TABLET PO SCH (20:49)
[2017-12-16 22:52] VITALS: RESP 16
[2017-12-17] MEDS: FINASTERIDE 1 MG PO SCH (08:48)
[2017-12-17] MEDS: NAPROXEN 250 MG TAB PO SCH (08:50)
[2017-12-17] MEDS: NICOTINE 21MG/24HR PATCH TRANSDERM SCH (08:50)
[2017-12-17] MEDS: CITALOPRAM HYDROBROMIDE 20 MG TAB PO SCH (08:50)
[2017-12-17] MEDS: METOPROLOL SUCCINATE (ER) 25 MG TAB.ER.24H PO SCH (08:51)
[2017-12-17] MEDS: PANTOPRAZOLE 40 MG/10 ML VIAL IV SCH (08:52)
--- NOTE | 2017-12-17 13:00 | P.PN ---
Progress Note - Text She is awake and alert he is cooperative and pleasant. He does not have any particular focal complaints. No nausea vomiting chest pain shortness of breath or any other discomfort REVIEW OF SYSTEMS: CONSTITUTIONAL: No fever or chills HEENT: No changes in vision or voice CARDIOVASCULAR: no chest pain or abnormal heart beats, or any swelling in ankles or feet. RESPIRATORY: No wheezing or coughing. GASTROINTESTINAL: No abdominal pain, no nausea no vomiting no constipation or diarrhea GENITOURINARY: no any urinary urgency, frequency or burning, and there has been no blood in her urine. no flank pain. MUSCULOSKELETAL: She notes full range of motion of all her joints without pain or swelling. NEUROLOGICAL: , no headache. no vision changes, or fainting. No numbness or tingling. General: No distress. Oriented x 3, normal mood and affect . Ambulating without difficulty. HEENT: Head: Normocephalic, atraumatic, no visible or palpable masses, depressions, or scaring, conjunctiva clear, sclera non-icteric, EOM intact, PERRL Oral: Mucous membranes moist, no mucosal lesions. Pharynx: Mucosa non-inflamed, no tonsillar hypertrophy or exudate Heart: No cardiomegaly or thrills; regular rate and rhythm, no murmur or gallop Lungs: Clear to auscultation and percussion Abdomen: Bowel sounds normal, no tenderness, organomegaly, masses, or hernia Back: Spine normal without deformity or tenderness, no CVA tenderness Extremities: No amputations or deformities, cyanosis, edema or varicosities, peripheral pulses intact Musculoskeletal: No peripheral joint swelling, pain, erythema. No clubbing Skin: Good turgor, no rash, unusual bruising or prominent lesions Neurologic: CN 2-12 normal. Sensation to pain, touch, and proprioception normal. DTRs normal in upper and lower extremities. No pathologic reflexes. Plan: 1. Suicide attempt Medically stable for discharge 2. Depression 8. Hypertension currently on Lopressor Heart rate is been stable continue present medications Continue suicide precautions and continue sitter Plan to discharge once bed available in mental health unit
[2017-12-17 15:45] VITALS: BP 126/77; PULSE 76; TEMP 98.1
--- NOTE | 2017-12-18 07:38 | P.DS ---
Providers Date of admission: 12/15/17 15:05 Expected date of discharge: 12/17/17 Attending physician: Ellen Graves DO Consults: 12/15/17 17:22 Consult Physician Stat Consulting Provider: Joanne Coughlin Consult Reason/Comments: Drug OD, Manic Do you want consulting provider notified?: Yes Primary care physician: Davidson Pack - Discharge Diagnosis(es) (1) Drug overdose Status: Acute (2) Manic behavior Status: Acute (3) Bradycardia Status: Acute Hospital Course: Patient was discharged to [facility] [place] on 12/17/17 as planned when the bed became available. See my discharge summary from 12/16, no significant changes occurred. Patient Condition at Discharge: Good Plan - Discharge Summary New Discharge Prescriptions: New Acetaminophen Tab [Tylenol] 650 mg PO Q6HR PRN tab PRN Reason: Mild Pain Or Fever > 100.5 Metoprolol Tartrate [Lopressor] 12.5 mg PO BID #30 dose Nicotine 21Mg/24Hr Patch [Habitrol] 1 patch TRANSDERM DAILY patch Continue Finasteride 1 mg PO DAILY Discontinued Gabapentin 600 mg PO QID Metoprolol Succinate (ER) [Toprol XL] 25 mg PO DAILY QUEtiapine [SEROquel] 400 mg PO DAILY Buprenorphine HCl/Naloxone HCl [Suboxone 8 mg-2 mg Sl Film] 1 film SUBLINGUAL TID Baclofen 20 mg PO QID PRN PRN Reason: Pain/Discomfort Gabapentin [Neurontin] 800 mg PO QID Discharge Medication List Finasteride 1 mg PO DAILY 12/15/17 [History] Acetaminophen Tab [Tylenol] 650 mg PO Q6HR PRN tab 12/16/17 [Rx] Metoprolol Tartrate [Lopressor] 12.5 mg PO BID #30 dose 12/16/17 [Rx] Nicotine 21Mg/24Hr Patch [Habitrol] 1 patch TRANSDERM DAILY patch 12/16/17 [Rx] Follow up Appointment(s)/Referral(s): Davidson Pack MD [Primary Care Provider] - 12/24/17 11:15 am (Saturday) Activity/Diet/Wound Care/Special Instructions: Regular diet Activity as per receiving unit Discharge Disposition: TRANSFER TO PSYCH HOSP/UNIT
== END 2017-12-17 18:41 ==
LOC: EC 12:11 → INTOOBSV 15:05 → 6SEL 15:05 → 4MS4W 12-16 19:13
PROVIDERS: ADMIT Internal Medicine; ATTEND Internal Medicine
DX: T42.8X2A Poisoning by antiparkinsonism drugs and other central muscle-tone depressants, intentional self-harm, initial encounter (principal); T40.4X2A Poisoning by other synthetic narcotics, intentional self-harm, initial encounter; R53.83 Other fatigue; G47.00 Insomnia, unspecified; I10 Essential (primary) hypertension; F17.210 Nicotine dependence, cigarettes, uncomplicated; G89.21 Chronic pain due to trauma; M54.9 Dorsalgia, unspecified; D72.829 Elevated white blood cell count, unspecified; Z65.3 Problems related to other legal circumstances; F31.9 Bipolar disorder, unspecified; Z82.49 Family history of ischemic heart disease and other diseases of the circulatory system; Z79.899 Other long term (current) drug therapy; Z83.3 Family history of diabetes mellitus; Z56.0 Unemployment, unspecified
CPT/HCPCS: 96376; 96374; 96375; 82075; 96361; 99285; 36415; 93005; 80053; 84484; 85025; 85610; 81003; 80306; 83520 ×2; 80320; G0378 ×4; S4990 ×3; J2405; C9113 ×2

== ENCOUNTER 2017-12-17 18:39 | Inpatient (IN) | payer MEDICARE ==
[2017-12-17] MEDS ORDERED: MAG HYDROX/AL HYDROX/SIMETH 30 ML CUP PO PRN (19:48)
[2017-12-17] MEDS ORDERED: MAGNESIUM HYDROXIDE 2,400 MG/10 ML CUP PO PRN (19:48)
[2017-12-17] MEDS ORDERED: ACETAMINOPHEN TAB 325 MG TAB PO PRN (19:48)
[2017-12-17] MEDS: METOPROLOL TARTRATE 12.5 MG TAB PO SCH (21:10)
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
[2017-12-18] MEDS: METOPROLOL TARTRATE 12.5 MG TAB PO SCH ×2 (10:17→20:51)
[2017-12-18] MEDS: NICOTINE 21MG/24HR PATCH TRANSDERM SCH (10:19)
[2017-12-18] MEDS: QUEtiapine 25 MG TAB PO SCH ×2 (10:19→15:52)
[2017-12-18] MEDS: GABAPENTIN 300 MG CAP PO SCH ×3 (10:19→20:51)
[2017-12-18] MEDS: FINASTERIDE 1 MG PO SCH (10:23)
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
[2017-12-18 19:04] LABS: Hemoglobin A1C 5.9 % (4.0-6.0)
[2017-12-18] MEDS: QUEtiapine 200 MG TAB PO SCH (20:51)
[2017-12-19] MEDS: NICOTINE 21MG/24HR PATCH TRANSDERM SCH (11:14)
[2017-12-19] MEDS: GABAPENTIN 300 MG CAP PO SCH (11:14)
[2017-12-19] MEDS: METOPROLOL TARTRATE 12.5 MG TAB PO SCH ×2 (11:14→21:02)
[2017-12-19] MEDS: FINASTERIDE 1 MG PO SCH (11:14)
[2017-12-19] MEDS: QUEtiapine 25 MG TAB PO SCH ×2 (11:15→16:10)
--- NOTE | 2017-12-19 12:59 | P.PN ---
Progress Note - Text Progress Note Date: 12/19/17 Interval History: Patient is a 57-year-old male who was seen today and he reports that he slept well last night, has not spoken to his . Patient states that he is feeling calm and is not feeling as overwhelmed or stressed as he was before. Patient denies any suicidal ideation. He states that he is not feeling sleepy during the day and is not having any side effects from the medication. Patient reports some benefit from his pain secondary to the gabapentin. Mental Status:Appearance/Attitude: Patient is casually dressed, makes good eye contact and was cooperative. Behavior: Patient does not exhibit any psychomotor agitation or retardation. Speech/Language: Patient's speech was spontaneous of normal volume and rhythm and he is coherent Thought Process: Patient is goal-directed there is no evidence of loose association or flight of ideas Thought Content: He denies any auditory or visual hallucinations and no delusions or paranoid ideation were elicited. Patient states that he is feeling calm her and not as overwhelmed or stress as he was on admission. He states that he slept well last evening for the first time, is not feeling irritable or agitated. Patient states that his appetite is good Suicidal/Homicidal Ideation: Patient denies any current suicidal or homicidal ideation Sensorium/Cognition: Patient is alert and oriented to person, place, and time and his recent and remote memory are grossly intact. Mood/Affect: Patient's mood is pleasant and his affect is appropriate Insight/Judgment: Patient's insight and judgment are fair Assessment: Patient states that he slept well for the first time last night, he reports that he has not spoken to his since he was admitted, he states that he is not feeling as overwhelmed or stressed and reports no side effects of the medication. Patient reports some pain relief with the gabapentin being started but would like the dose increased. Patient and I discussed his need for him to contact his workers' compensation hearings officer while he is in the hospital. Plan: Patient will continue on Seroquel 25 mg twice a day and 200 mg at bedtime to target his mood symptoms, we'll increase his gabapentin to 400 mg 3 times a day to target his pain. Patient continues to require hospitalization to further stabilize his mood.
[2017-12-19] MEDS: GABAPENTIN 400 MG CAP PO SCH ×2 (16:11→21:02)
[2017-12-19] MEDS ORDERED: HYDROCORTISONE 1% OINT 28.35 GM TUBE TOPICAL PRN (18:55)
[2017-12-19] MEDS: QUEtiapine 200 MG TAB PO SCH (21:02)
[2017-12-20] MEDS: NICOTINE 21MG/24HR PATCH TRANSDERM SCH (08:37)
[2017-12-20] MEDS: GABAPENTIN 400 MG CAP PO SCH (08:38)
[2017-12-20] MEDS: QUEtiapine 25 MG TAB PO SCH ×2 (08:39→15:33)
[2017-12-20] MEDS: METOPROLOL TARTRATE 12.5 MG TAB PO SCH ×2 (08:39→21:00)
[2017-12-20] MEDS: FINASTERIDE 1 MG PO SCH (08:40)
--- NOTE | 2017-12-20 11:30 | P.PN ---
Progress Note - Text Progress Note Date: 12/20/17 Interval History: Patient is a 57-year-old male who was seen today, he reports that he continued to sleep well last night his pain has improved a little bit reporting pain mostly in his neck and back. Patient states that he doesn't feel sleepy during the day but just a little off with the Seroquel during the day. He states that he hasn't felt restless and has not been pacing. He felt that his thinking was much clearer than it was when he was at home. Patient states that he not having any suicidal thoughts. He states that his mood is less irritable. Mental Status: Appearance/Attitude: Patient is casually dressed, makes good eye contact and was cooperative. Behavior: Patient did not exhibit any psychomotor agitation or retardation. Speech/Language: Patient's speech was spontaneous of normal volume and rhythm and he is coherent. Thought Process: Patient was goal-directed there was no evidence of loose association or flight of ideas Thought Content: Patient denied any auditory or visual hallucinations and no delusions or paranoid ideation were elicited. Patient states that his pain has improved somewhat, he has been feeling calmer and less like pacing and states that he is thinking clearer. Patient reported he continues to sleep well at night and his appetite is good. Suicidal/Homicidal Ideation: Patient denied any current suicidal or homicidal ideation Sensorium/Cognition: Patient is alert and oriented to person, place, and time and his recent and remote memory are grossly intact. Mood/Affect: Patient's mood is pleasant and his affect is appropriate Insight/Judgment: Patient's insight and judgment are fair Assessment: Patient reports that his pain has improved somewhat with the gabapentin, he states that he slept last evening and its documented he slept for 7 hours. Patient states he is not feeling groggy during the day but little off with the Seroquel during the day. He states he has not felt like pacing and has been attending groups and activities. It is been confirmed that the patient's has filed a PPO order on the patient however the patient is unaware of this and has yet to be served the papers. This was discussed in the team meeting that the needs to be contacted to either inform the patient himself that she has obtained this or have the papers served to him so that we can arrange for appropriate discharge planning. Plan: Patient will continue on Seroquel 25 mg twice a day and 200 mg at bedtime. His gabapentin will be increased to 600 mg 3 times a day to target his pain. Patient stated that he probably will not restart the baclofen on discharge and I instructed him that should not also restart the Suboxone. Patient continues to require hospitalization to further stabilize his mood. Patient is not aware that his obtained a PPO order.
[2017-12-20] MEDS: GABAPENTIN 300 MG CAP PO SCH ×2 (15:33→21:00)
[2017-12-20] MEDS: QUEtiapine 200 MG TAB PO SCH (21:00)
[2017-12-21] MEDS: METOPROLOL TARTRATE 12.5 MG TAB PO SCH ×2 (08:50→21:12)
[2017-12-21] MEDS: NICOTINE 21MG/24HR PATCH TRANSDERM SCH (08:50)
[2017-12-21] MEDS: QUEtiapine 25 MG TAB PO SCH ×2 (08:51→14:34)
[2017-12-21] MEDS: FINASTERIDE 1 MG PO SCH (08:51)
[2017-12-21] MEDS: GABAPENTIN 300 MG CAP PO SCH ×3 (08:51→21:11)
--- NOTE | 2017-12-21 10:51 | P.PN ---
Progress Note - Text Progress Note Date: 12/21/17 Interval history: Patient is seen in cross coverage today. He reports that he is tolerating his psychotropic medications well. He feels that his mood is doing better. He makes reference to some appointments coming up regarding legal matters. He also talks about an impact weekend that he has scheduled. He had been admitted medically and then was transferred to the inpatient psychiatric unit. Mental status exam: He is alert and cooperative with the interview. He describes his mood is doing better. He denies any thoughts of harm to self or others. He does not show any active evidence of psychosis. He does not show any agitation. Plan: We'll maintain current psychotropic medication regimen. Continue to cover this patient through the weekend.
[2017-12-21] MEDS: QUEtiapine 200 MG TAB PO SCH (21:11)
[2017-12-22] MEDS: METOPROLOL TARTRATE 12.5 MG TAB PO SCH ×2 (08:44→21:12)
[2017-12-22] MEDS: QUEtiapine 25 MG TAB PO SCH ×2 (08:45→15:31)
[2017-12-22] MEDS: GABAPENTIN 300 MG CAP PO SCH ×3 (08:45→21:12)
[2017-12-22] MEDS: FINASTERIDE 1 MG PO SCH (08:46)
[2017-12-22] MEDS: NICOTINE 21MG/24HR PATCH TRANSDERM SCH (08:47)
--- NOTE | 2017-12-22 12:14 | P.PN ---
Progress Note - Text Progress Note Date: 12/22/17 Interval history: Patient seen in [facility] today again. He says he slept about 6 or 7 hours last night. He does not voice any adverse psychotropic medication side effects. He does feel that his mood is doing good. Mental status exam: He is alert and cooperative with the interview. His speech is fluent, not rapid or pressured. Thought processes are organized. His mood he describes is good. He denies any thoughts of harm to self or others. He denies any hallucinations. He does not make any delusional statements. He does not show any agitation. Plan: Patient will be maintained on current psychotropic medication regimen. Continue to monitor for any side effects and monitor for his ongoing response.
[2017-12-22] MEDS: QUEtiapine 200 MG TAB PO SCH (21:12)
[2017-12-23 07:00] VITALS: TEMP 98.5
[2017-12-23] MEDS: FINASTERIDE 1 MG PO SCH (09:11)
[2017-12-23] MEDS: QUEtiapine 25 MG TAB PO SCH ×2 (09:12→14:41)
[2017-12-23] MEDS: NICOTINE 21MG/24HR PATCH TRANSDERM SCH (09:12)
[2017-12-23] MEDS: METOPROLOL TARTRATE 12.5 MG TAB PO SCH (09:12)
[2017-12-23] MEDS: GABAPENTIN 300 MG CAP PO SCH ×2 (09:12→14:42)
[2017-12-23 09:15] VITALS: BP 137/94; PULSE 87; RESP 18
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
== END 2017-12-23 14:45 | disposition home or self-care (01) | DRG 885 ==
LOC: 3MHU 19:13
PROVIDERS: ADMIT Psychiatry & Neurology Psychiatry; ATTEND Psychiatry & Neurology Psychiatry
DX: F31.9 Bipolar disorder, unspecified (principal); I10 Essential (primary) hypertension; G47.9 Sleep disorder, unspecified; Z79.899 Other long term (current) drug therapy; Z65.3 Problems related to other legal circumstances
CPT/HCPCS: 80061; 83036; 84443

== ENCOUNTER 2019-10-11 13:11 | Emergency (ER) | payer MEDICARE ==
[2019-10-11 13:23] VITALS: RESP 18
[2019-10-11 13:47] VITALS: TEMP 98.3
[2019-10-11] MEDS ORDERED: HYDROcodone/APAP 5-325MG 1 EACH TAB PO STA (14:03)
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
--- NOTE | 2019-10-11 14:55 | XR ---
EXAMINATION TYPE: XR tibia fibula RT DATE OF EXAM: 10/11/2019 COMPARISON: NONE HISTORY: Pain swelling TECHNIQUE: 2 view right tibia and fibula FINDINGS: Joint spaces appear preserved. No acute fracture within the [id number] is evident. There may be some old posttraumatic change of the distal fibula. Mild soft tissue and may be over the prox imal tibia. IMPRESSION: 1. No acute osseous abnormality. 2. Follow-up exams can be performed 7-10 days from acute trauma for continued pain.
--- NOTE | 2019-10-11 14:59 | XR ---
EXAMINATION TYPE: XR ankle complete RT DATE OF EXAM: 10/11/2019 COMPARISON: None HISTORY: Pain TECHNIQUE: Three-view right ankle FINDINGS: Ankle mortise is intact. No acute fractures are evident. Some old distal fibular changes pr ior fracture may be present. Plantar and Achilles tendon calcaneal heel spurs are present. Soft tissu es appear unremarkable. Follow-up study can be performed 7-10 days from acute trauma for continued pain. IMPRESSION: 1. No acute osseous abnormality.
--- NOTE | 2019-10-11 15:02 | US ---
EXAMINATION TYPE: US venous doppler duplex LE RT DATE OF EXAM: 10/11/2019 2:53 PM COMPARISON: NONE CLINICAL HISTORY: pain. Right leg pain and swelling SIDE PERFORMED: Right TECHNIQUE: The lower extremity deep venous system is examined utilizing real time linear array sonog ainsley with graded compression, doppler sonography and color-flow sonography. VESSELS IMAGED: External Iliac Vein (EIV) Common Femoral Vein Deep Femoral Vein Greater Saphenous Vein * Femoral Vein Popliteal Vein Small Saphenous Vein * Proximal Calf Veins (* superficial vessels) Right Leg: Appears negative for DVT Right groin: 2.7 x 1.7 x 2.1cm lymph node IMPRESSION: 1. Right lower extremity ultrasound negative for deep venous thrombosis. 2. There is a prominent right groin inguinal lymph node identified.
[2019-10-11] MEDS ORDERED: CEPHALEXIN 500 MG CAP PO STA (15:11)
[2019-10-11] MEDS ORDERED: ACET/COD 300 MG/30 MG STARTER PACK 6 TAB BTL PO STA (15:11)
[2019-10-11] MEDS ORDERED: CEPHALEXIN 500MG STARTER PACK 4 CAP BTL PO STA (15:11)
[2019-10-11] MEDS ORDERED: Acetaminophen-Codeine 300-30mg TAB PO STA (15:11)
[2019-10-11] MEDS ORDERED: FUROSEMIDE 40 MG TAB PO STA (15:11)
[2019-10-11 15:42] VITALS: BP 123/82; PULSE 64
== END 2019-10-11 15:50 | disposition home or self-care (01) ==
LOC: EC 13:11
DX: L03.115 Cellulitis of right lower limb (principal); F17.200 Nicotine dependence, unspecified, uncomplicated; Z91.030 Bee allergy status
CPT/HCPCS: 99284

== ENCOUNTER 2020-11-02 09:47 | Emergency (ER) | payer MEDICARE ==
[2020-11-02 09:56] VITALS: RESP 18
[2020-11-02 10:33] LABS: Basophils # (A) 0.1 k/uL (0-0.2); Basophils % (A) 1 %; Eosinophils # (A) 0.4 k/uL (0-0.7); Eosinophils % (A) 6 %; HCT 41.9 % (39.0-53.0); HGB 14.2 gm/dL (13.0-17.5); Lymphocytes # (A) 2.4 k/uL (1.0-4.8); Lymphocytes % (A) 35 %; MCH 31.8 pg (25.0-35.0); MCHC 33.8 g/dL (31.0-37.0); MCV 94.2 fL (80.0-100.0); Mean Platelet Volume 6.9; Monocytes # (A) 0.5 k/uL (0-1.0); Monocytes % (A) 7 %; Neutrophils # (A) 3.4 k/uL (1.3-7.7); Neutrophils % (A) 50 %; Platelet Count 268 k/uL (150-450); RBC 4.45 m/uL (4.30-5.90); RDW 13.1 % (11.5-15.5); WBC 6.8 k/uL (3.8-10.6)
[2020-11-02 10:45] LABS: INR 0.9 (<1.2); Partial Thromboplastin Time 25.7 sec (22.0-30.0)
[2020-11-02 10:46] LABS: ALT 15 U/L (4-49); AST 29 U/L (17-59); African American GFR (CKD) >90 (>60 ml/min/1.73 sqM); Albumin 3.8 g/dL (3.5-5.0); Alkaline Phosphatase 76 U/L (38-126); Anion Gap 8 mmol/L; Blood Urea Nitrogen 14 mg/dL (9-20); Calcium 9.4 mg/dL (8.4-10.2); Carbon Dioxide 27 mmol/L (22-30); Chloride 100 mmol/L (98-107); Glucose 142 mg/dL (74-99); Non-African American GFR(CKD) 83 (>60 ml/min/1.73 sqM); Potassium 4.2 mmol/L (3.5-5.1); Sodium 135 mmol/L (137-145); Total Bilirubin 0.3 mg/dL (0.2-1.3); Total Protein 6.6 g/dL (6.3-8.2)
--- NOTE | 2020-11-02 10:51 | US ---
EXAMINATION TYPE: US venous doppler duplex LE LT DATE OF EXAM: 11/02/2020 10:40 AM COMPARISON: NONE CLINICAL HISTORY: DVT. Patient was diagnosed with DVT at another hospital on Saturday in right leg. SIDE PERFORMED: Right TECHNIQUE: The lower extremity deep venous system is examined utilizing real time linear array sonog ainsley with graded compression, doppler sonography and color-flow sonography. VESSELS IMAGED: Common Femoral Vein Deep Femoral Vein Greater Saphenous Vein * Femoral Vein Popliteal Vein Small Saphenous Vein * Proximal Calf Veins (* superficial vessels) Left Leg: Positive for DVT from the proximal left femoral vein to proximal calf veins. This deep naresh ous thrombosis is occlusive and noncompressible. IMPRESSION: 1. Left leg: The patient has an acute extensive deep venous thrombosis from the proximal left femoral vein to the proximal calf veins. This is occlusive and noncompressible.
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
[2020-11-02 13:06] VITALS: BP 120/73; PULSE 64; TEMP 97.8
== END 2020-11-02 13:05 | disposition home or self-care (01) ==
LOC: EC 09:47
DX: I82.412 Acute embolism and thrombosis of left femoral vein (principal); I10 Essential (primary) hypertension; F17.200 Nicotine dependence, unspecified, uncomplicated; Z79.899 Other long term (current) drug therapy; Z91.030 Bee allergy status
CPT/HCPCS: 36415; 80053; 85025; 85610; 85730; 99284

== ENCOUNTER 2021-11-20 20:32 | Emergency (ER) | payer BC, MEDICARE ==
[2021-11-20 20:40] VITALS: BP 131/77; PULSE 67; RESP 18; TEMP 98
[2021-11-20] MEDS ORDERED: SODIUM CHLORIDE 0.9% 1,000 ML IV STA (21:31)
[2021-11-20] MEDS ORDERED: MORPHINE SULFATE 2 MG/ML SYRINGE IVP STA (21:31)
[2021-11-20] MEDS ORDERED: KETOROLAC 15 MG/ML 1 ML VIAL IVP STA (21:31)
--- NOTE | 2021-11-20 22:01 | XR ---
EXAMINATION TYPE: XR thoracic spine complete DATE OF EXAM: 11/20/2021 COMPARISON: NONE HISTORY: Pain TECHNIQUE: 3 views FINDINGS: The thoracic vertebra abnormal alignment. Posterior element are intact. There is no paraspi nal mass. No compression fracture. IMPRESSION: No acute abnormality of the thoracic spine.
--- NOTE | 2021-11-20 22:05 | XR ---
EXAMINATION TYPE: XR lumbar spine 2 or 3V DATE OF EXAM: 11/20/2021 COMPARISON: NONE HISTORY: Pain TECHNIQUE: 3 views FINDINGS: Vertebral abnormal alignment. Posterior elements are intact. Sacroiliac joints are intact. No compression fracture. IMPRESSION: Negative lumbar spine exam. No fracture.
[2021-11-20 22:08] LABS: Basophils # (A) 0.1 k/uL (0-0.2); Basophils % (A) 1 %; Eosinophils # (A) 0.4 k/uL (0-0.7); Eosinophils % (A) 3 %; HCT 49.8 % (39.0-53.0); HGB 15.8 gm/dL (13.0-17.5); Lymphocytes # (A) 2.9 k/uL (1.0-4.8); Lymphocytes % (A) 21 %; MCH 30.9 pg (25.0-35.0); MCHC 31.7 g/dL (31.0-37.0); MCV 97.4 fL (80.0-100.0); Mean Platelet Volume 7.3; Monocytes # (A) 0.8 k/uL (0-1.0); Monocytes % (A) 5 %; Neutrophils # (A) 9.7 k/uL (1.3-7.7); Neutrophils % (A) 69 %; Platelet Count 273 k/uL (150-450); RBC 5.12 m/uL (4.30-5.90); WBC 13.9 k/uL (3.8-10.6)
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
[2021-11-20 22:21] LABS: Albumin 4.2 g/dL (3.5-5.0); Calcium 9.2 mg/dL (8.4-10.2); Potassium 4.7 mmol/L (3.5-5.1); Total Bilirubin 0.3 mg/dL (0.2-1.3); Total Protein 6.9 g/dL (6.3-8.2)
--- NOTE | 2021-11-20 22:53 | CT ---
EXAMINATION TYPE: CT abdomen pelvis w con DATE OF EXAM: 11/20/2021 COMPARISON: None HISTORY: abd pain and back pain CT DLP: 2325.5 mGycm Automated exposure control for dose reduction was used. CONTRAST: Performed with IV Contrast, patient injected with 100 mL of Isovue 300. Images obtained from the diaphragm to the floor the pelvis with IV contrast. Heart size is normal. No pericardial effusion. There is mild subsegmental atelectasis at the lung bas es. No pleural effusion. Liver spleen and stomach pancreas gallbladder appear intact. The bile ducts are not dilated. There is no adrenal mass. Kidneys have normal size and contour. No hydronephrosis. Ureters are not di lated. No retroperitoneal adenopathy. There is 3 cm fat-containing umbilical hernia. Bladder distends smoothly. There is fat-containing left inguinal hernia. No pelvic mass. No free fluid in the pelvis. Appendix is lateral and appears normal. There is no mesenteric edema. No ascites or free air. No sign of a bowel obstruction. The lumbar vertebrae have normal alignment. No compression fracture. Bony pelvis is intact. There is acetabular spurring. Sacroiliac joints are intact. IMPRESSION: No acute abnormality of the abdomen and pelvis. Normal appendix. Umbilical and left inguinal hernias. Mild subsegmental atelectasis at the lung bases.
[2021-11-20] MEDS ORDERED: HYDROcodone/APAP 7.5-325MG 1 EACH TAB PO ONE (23:23)
== END 2021-11-20 23:41 | disposition home or self-care (01) ==
LOC: EC 20:32
DX: K85.90 Acute pancreatitis without necrosis or infection, unspecified (principal); I10 Essential (primary) hypertension; F17.200 Nicotine dependence, unspecified, uncomplicated; Z91.030 Bee allergy status
CPT/HCPCS: 36415; 93005; 80053; 82150; 83690; 85025; 72072; 72100; 74177; 99285; 96374; 96361; J1885; Q9967

== ENCOUNTER → 2023-12-04 | Outpatient (CLI) | payer MEDICARE ==
--- NOTE | 2023-12-04 14:44 | US ---
EXAMINATION TYPE: US arterial LE single level DATE OF EXAM: 12/04/2023 2:13 PM CLINICAL INDICATION: Male, 63 years old with history of L97.322 NON-PRESSURE CHRONIC ULCER OF LEFT AN KLE W; Patient had open fracture left ankle in may. Still has healing wound. History of: Smoker: Current smoker Hypertension: Yes Diabetic: No Hyperlipidemia: No TIA/CVA: No Previous Vascular Surgery: No CAD: No LA: No Vascular Ulcers: Nonhealing wound left ankle Claudication: Left Gangrene: No Right Brachial Pressure: 142 Left Brachial Pressure: 146 Ankle-Brachial Indices: Right: 1.08 Left: 1.12 IMPRESSION: Normal bilateral ankle-brachial indices.
== END | disposition home or self-care (01) ==
LOC: RADUSWWP 13:32
PROVIDERS: ATTEND Thoracic Surgery (Cardiothoracic Vascular Surgery)
DX: L97.322 Non-pressure chronic ulcer of left ankle with fat layer exposed (principal)
CPT/HCPCS: 93922

== ENCOUNTER 2024-08-24 20:24 | Inpatient (IN) | payer MEDICARE ==
[2024-08-24] MEDS ORDERED: VANCOMYCIN IV PER PHARMACY 1 EACH MISC MISCELLANE PRN (21:06)
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
[2024-08-24 21:17] LABS: Basophils # (A) 0.07 10*3/uL (0.00-0.10); Basophils % (A) 0.7 %; Eosinophils # (A) 0.43 10*3/uL (0.04-0.35); Eosinophils % (A) 4.5 %; HCT 44.4 % (39.6-50.0); Lymphocytes # (A) 2.29 10*3/uL (0.90-5.00); Lymphocytes % (A) 23.8 %; MCH 31.3 pg (27.0-32.0); MCHC 33.8 g/dL (32.0-37.0); MCV 92.7 fL (80.0-97.0); Mean Platelet Volume 9.1 fL (9.5-12.2); Monocytes # (A) 0.68 10*3/uL (0.20-1.00); Monocytes % (A) 7.1 %; Neutrophils # (A) 6.13 10*3/uL (1.80-7.70); Neutrophils % (A) 63.5 %; Platelet Count 342 10*3/uL (140-440); RBC 4.79 10*6/uL (4.40-5.60); RDW 13.1 % (11.5-14.5); WBC 9.64 10*3/uL (4.50-10.00)
[2024-08-24 21:26] LABS: ALT 45 U/L (4-49); AST 36 U/L (17-59); African American GFR (CKD) >90 (>60 ml/min/1.73 sqM); Albumin 4.1 g/dL (3.5-5.0); Alkaline Phosphatase 107 U/L (38-126); Anion Gap 8 mmol/L; Blood Urea Nitrogen 12 mg/dL (9-20); C Reactive Protein 4.1 mg/dL (<1.0); Calcium 9.1 mg/dL (8.4-10.2); Carbon Dioxide 27 mmol/L (22-30); Chloride 102 mmol/L (98-107); Glucose 130 mg/dL (74-99); Magnesium 2.2 mg/dL (1.6-2.3); Non-African American GFR(CKD) >90 (>60 ml/min/1.73 sqM); Phosphorus 3.8 mg/dL (2.5-4.5); Potassium 4.2 mmol/L (3.5-5.1); Sodium 137 mmol/L (137-145); Total Bilirubin 0.7 mg/dL (0.2-1.3); Total Protein 7.4 g/dL (6.3-8.2)
[2024-08-24 21:29] LABS: INR 1.1 (<1.2); Partial Thromboplastin Time 33.1 sec (22.0-30.0); Prothrombin Time 11.7 sec (10.0-12.5)
[2024-08-24 21:31] LABS: NT-Pro-B-Type Natriuretic Pept <20 pg/mL
[2024-08-24] MEDS: SODIUM CHLORIDE 0.9% 1,000 ML IV SCH (22:14)
--- NOTE | 2024-08-24 22:14 | US ---
EXAMINATION TYPE: US venous doppler duplex LE LT DATE OF EXAM: 08/24/2024 9:52 PM COMPARISON: US 2020, CT 11/20/2021. CLINICAL INDICATION: Male, 64 years old with history of dvt; patient states DVT left leg 2020. on thi nners. pain, swelling, redness. hx cellulitis, Pain TECHNIQUE: The lower extremity deep venous system is examined utilizing real time linear array sonog ainsley with graded compression, color doppler sonography, and spectral doppler. SIDE PERFORMED: Left FINDINGS: VESSELS IMAGED: Common Femoral Vein Deep Femoral Vein Greater Saphenous Vein * Femoral Vein Popliteal Vein Small Saphenous Vein * Proximal Calf Veins (* superficial vessels) Left Leg: partial compression seen from the femoral vein through the popliteal vein. unable to visua lize the distal femoral vein. color flow seen within visualized vessels. ? chronic non-occlusive dvt, Color Doppler imaging shows patency of the vessels. Spectral waveforms are within normal limits. There are also multiple probable lymph nodes seen in the left groin measuring up to 1.8cm Subcutaneous edema throughout the left calf. IMPRESSION: 1. Chronic nonocclusive deep vein thrombosis. 2. Enlarged inguinal lymph nodes, not fat different from 11/20/2021 given differences in technique. 3. Subcutaneous edema throughout the left calf. [facility], , 08/24/2024 10:12 PM
[2024-08-24] MEDS ORDERED: HYDROmorphone 1 MG/ML 1 ML SYRINGE IVP PRN (22:23)
[2024-08-24] MEDS: ACETAMINOPHEN TAB 500 MG TAB PO STA (22:31)
[2024-08-24] MEDS: HYDROmorphone 1 MG/ML 1 ML SYRINGE IVP STA (22:32)
[2024-08-24] MEDS ORDERED: ONDANSETRON 4 MG/2 ML VIAL IVP PRN (22:49)
[2024-08-24] MEDS ORDERED: NALOXONE 0.4 MG/ML 1 ML VIAL IV PRN (22:49)
[2024-08-24] MEDS: VANCOMYCIN 2,000 MG in SODIUM CHLORIDE 0.9% 500 ML 500 ML IVPB ONE (23:48)
--- NOTE | 2024-08-25 01:05 | XR ---
EXAM: XR Left Tibia and Fibula, 2 Views CLINICAL HISTORY: XR Reason: pain TECHNIQUE: Frontal and lateral views of the left tibia and fibula. COMPARISON: No relevant prior studies available. FINDINGS: Bones/joints: There is a 12 cm screw extending through the calcaneus into the distal tibia. There is surrounding lucency suggesting loosening. Signs of previous instrumentation of the mid tibia. Mild to moderate narrowing and osteophytosis cysts of all 3 compartments of the left knee joint. No significant knee joint effusion is identified. There is a 20 cm metallic axel extending through the distal fibula spanning an old healed distal fibular fracture. There are also 2 transverse screws extending into the distal tibia which demonstrate surrounding lucency suggesting loosening. 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 No dislocation. Soft tissues: Diffuse subcutaneous edema throughout the left lower leg. No subcutaneous emphysema is identified. Probable soft tissue wound over the medial malleolus. No radiopaque foreign body. IMPRESSION: 1. Diffuse subcutaneous edema throughout the left lower leg. No subcutaneous emphysema is identified. Probable soft tissue wound over the medial malleolus. 2. There is a 12 cm screw extending through the calcaneus into the distal tibia. There is surrounding lucency suggesting loosening. 3. 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 Likely incomplete fusion. 4. There is a 20 cm metallic axel extending through the distal fibula spanning an old healed distal fibular fracture. There are also 2 transverse screws extending into the distal tibia which demonstrate surrounding lucency suggesting loosening. 5. Mild to moderate narrowing and osteophytosis cysts of all 3 compartments of the left knee joint. No significant knee joint effusion is identified.
[2024-08-25] MEDS ORDERED: DEXTROSE 50% SYRINGE 50 ML IVP PRN ×2 (01:19)
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
[2024-08-25 06:24] LABS: Glucose,Whole Blood 153 mg/dL (70-110)
[2024-08-25] MEDS: INSULIN LISPRO (HumaLOG) 100 UNIT/ML 10 mL VL SQ SCH (06:36)
[2024-08-25 06:38] LABS: ALT 37 U/L (4-49); AST 27 U/L (17-59); African American GFR (CKD) >90 (>60 ml/min/1.73 sqM); Albumin 3.5 g/dL (3.5-5.0); Alkaline Phosphatase 104 U/L (38-126); Anion Gap 7 mmol/L; Blood Urea Nitrogen 11 mg/dL (9-20); Calcium 8.6 mg/dL (8.4-10.2); Carbon Dioxide 27 mmol/L (22-30); Chloride 101 mmol/L (98-107); Glucose 172 mg/dL (74-99); Magnesium 2.1 mg/dL (1.6-2.3); Non-African American GFR(CKD) >90 (>60 ml/min/1.73 sqM); Phosphorus 3.2 mg/dL (2.5-4.5); Potassium 4.6 mmol/L (3.5-5.1); Sodium 135 mmol/L (137-145); Total Bilirubin 0.8 mg/dL (0.2-1.3); Total Protein 6.6 g/dL (6.3-8.2)
[2024-08-25 06:42] LABS: Basophils # (A) 0.05 10*3/uL (0.00-0.10); Basophils % (A) 0.5 %; Eosinophils # (A) 0.31 10*3/uL (0.04-0.35); Eosinophils % (A) 2.8 %; HCT 44.9 % (39.6-50.0); HGB 14.9 g/dL (13.0-17.0); Lymphocytes # (A) 1.34 10*3/uL (0.90-5.00); Lymphocytes % (A) 12.3 %; MCH 31.3 pg (27.0-32.0); MCHC 33.2 g/dL (32.0-37.0); MCV 94.3 fL (80.0-97.0); Monocytes # (A) 0.75 10*3/uL (0.20-1.00); Monocytes % (A) 6.9 %; Neutrophils # (A) 8.38 10*3/uL (1.80-7.70); Neutrophils % (A) 76.9 %; Platelet Count 325 10*3/uL (140-440); RBC 4.76 10*6/uL (4.40-5.60); RDW 13.1 % (11.5-14.5); WBC 10.89 10*3/uL (4.50-10.00)
[2024-08-25] MEDS: ENOXAPARIN 40 MG/0.4 ML SYRINGE SQ SCH (08:45)
[2024-08-25] MEDS: NICOTINE 21MG/24HR PATCH TRANSDERM SCH (08:45)
[2024-08-25] MEDS: HYDROmorphone 2 MG/ML 1 ML SYRINGE IVP PRN (08:45)
[2024-08-25] MEDS: METOPROLOL SUCCINATE (ER) 25 MG TAB.ER.24H PO SCH (09:51)
--- NOTE | 2024-08-25 12:32 | P.PN ---
Subjective Progress Note Date: 08/25/24 Hospital Course: Patient is a 64-year-old male with hypertension, anxiety, bipolar disorder, depression, chronic wound on left ankle (seen by wound care nurse since September 2023), history of DVT (diagnosed 2022, on Xarelto unrecalled dose) , prescription drug abuse and current everyday smoker is here for evaluation of left lower extremity swelling and redness. Last 08/20, patient reported that he noticed his left lower extremity swell up gradually throughout the day. He then noticed redness in the area the following day. His symptoms did not improve and his wound care nurse advised him to seek care when he was evaluated today. He reported associated chest pain on the left upper chest area that is stabbing, nonradiating, 7/10 intensity at maximum, constant, worse with palpation of the area and improved with rest. He denied fever, chills, nausea, vomiting, palpitations, shortness of breath, calf pain or tenderness, lightheadedness, dizziness, focal weakness, changes in vision, recent illness or hospitalization. He has a chronic wound on his left ankle that poorly healed after he broke his ankle in May 2023. On admission: Vitals: Temperature 98.1 F, pulse rate 74, respiratory rate 20, blood pressure 132/80, O2 saturation 95% on room air Labs: WBC 9.64, hemoglobin 15, platelet count 242,000, troponin less than 0.012, proBNP less than 20, CRP 4.1, lactic acid 2. Imaging: Venous Doppler ultrasound of left leg shows partial compression seen from femoral vein through popliteal vein consistent with chronic nonocclusive DVT and enlarged inguinal lymph nodes seen in November 2021 and subcutaneous edema to the left calf. Tibia and fibula x-ray showed no acute fractures or osseous processes consistent with osteomyelitis. Subjective: Patient seen and examined at bedside. No acute events overnight. No current complaints. Pertinent positives and negatives as discussed above, a complete review of systems was performed and all other systems are negative. Vitals: Signs Reviewed Physical Exam: General: nontoxic, no distress, appears at stated age Derm: warm, dry, intact Head: atraumatic, normocephalic, symmetric Eyes: EOMI, anicteric sclera Mouth: no lip lesion, mucus membranes moist Cardiovascular: S1 S2 reg, no murmur, rubs, or gallops Lungs: CTA bilateral, no rhonchi, no rales, no accessory muscle use Abdominal: soft, non-tender to palpataion, no appreciable organomegaly Ext: muscle strength 5 out of 5 in all 4 extremities grossly, no gross muscle atrophy, no contractures, positive dorsalis pedis pulse bilateral, edema of left lower extremity with associated erythema surrounding a chronic left ankle wound extending from the dorsum of the foot to midcalf, purulent discharge noted from the ankle wound, tenderness and warmth noted on palpation of affected area of the left lower extremity Neuro: Alert, Oriented, CNII-XII grossly intact, gait normal Psych: well appearing, appropriate affect Data Received Today: Pertinent Labs: WBC 10.89, Hgb 14.9, platelet 325, Na 135, BUN 11, Cr 0.81 Imaging: N/a Assessment and Plan: 64M with chronic wound and history of DVT on anticoagulation here for evaluation of left lower extremity swelling and erythema surrounding the chronic wound due to cellulitis with associated chest pain. The patient is admitted with an anticipated greater than 2 midnight stay for evaluation of cellulitis. Active: #. Cellulitis of left lower extremity #. Chronic left ankle wound - WBC 10.89, pt afebrile -Tibia and fibula x-ray, independently interpreted showed no acute fractures, metallic axel exited the distal fibula showing 2 transverse screws extending to the distal tibia which demonstrates surrounding lucency suggesting loosening -Vancomycin IV and ceftriaxone given in the ED. - Continue with cefepime 2 g IVPB every 8 hours and vancomycin IVPB every 12 hours -Continue with pain control with Dilaudid IV -Blood cultures pending -Consult wound care Consult Ortho due to concerns with loosened screws at distal tibia which may be concerning for osteomyelitis -consult ID #. Diabetes with hyperglycemia - Patient's A1c was 6.8 in April 2024 - Glucose 130 on admission - Check A1c -Hold home medications -Glucose Accu-Cheks ACHS -Initiate Insulin sliding scale ACHS -Monitor for hypoglycemia Chronic Conditions: #. Hypertension #. Anxiety #. Bipolar disorder #. Depression #. History of DVT #. Nicotine dependence -Resume home medications once reconciled -Nicotine patch offered. Counseled on smoking cessation Resolved: #. Chest pain, likely non-cardiac DVT ppx: Lovenox 40 SQ daily Code status: No code Anticipated discharge place: Pending clinical course Anticipated discharge time: Pending clinical course Omero Stratton MD PGY-1 IM Dictation was produced using [employer] dictation software. please excuse any grammatical, word or spelling errors. I saw and evaluated the patient during the rojo and critical portions of this encounter, and discussed the case in detail with the resident author of this note, I agree with the Assessment and Plan, and my changes, if any, are highlighted in blue. Objective - Vital Signs Vital signs: Vital Signs Temp 97.4 F L 08/25/24 00:23 Pulse 68 08/25/24 00:23 Resp 18 08/25/24 00:23 BP 150/92 08/25/24 00:23 Pulse Ox 95 08/25/24 00:23 FiO2 Intake & Output 08/24/24 08/25/24 08/25/24 18:59 06:59 18:59 Weight 106.594 kg Other: Voiding Method Toilet # Voids 1 - Labs CBC & Chem 7: 08/25/24 05:48 08/25/24 05:48 Labs: Abnormal Lab Results - Last 24 Hours (Table) 08/24/24 08/24/24 08/24/24 Range/Units 21:10 21:10 21:10 WBC (4.50-10.00) 10*3/uL MPV 9.1 L (9.5-12.2) fL Immature Gran # (0.00-0.04) 10*3/uL Neutrophils # (1.80-7.70) 10*3/uL Eosinophils # 0.43 H (0.04-0.35) 10*3/uL APTT 33.1 H (22.0-30.0) sec Sodium (137-145) mmol/L Glucose 130 H (74-99) mg/dL POC Glucose (mg/dL) (70-110) mg/dL C-Reactive Protein 4.1 H (<1.0) mg/dL 08/25/24 08/25/24 08/25/24 Range/Units 05:48 05:48 06:23 WBC 10.89 H (4.50-10.00) 10*3/uL MPV 9.0 L (9.5-12.2) fL Immature Gran # 0.06 H (0.00-0.04) 10*3/uL Neutrophils # 8.38 H (1.80-7.70) 10*3/uL Eosinophils # (0.04-0.35) 10*3/uL APTT (22.0-30.0) sec Sodium 135 L (137-145) mmol/L Glucose 172 H (74-99) mg/dL POC Glucose (mg/dL) 153 H (70-110) mg/dL C-Reactive Protein (<1.0) mg/dL
[2024-08-25] MEDS: VANCOMYCIN 1,750 MG in SODIUM CHLORIDE 0.9% 500 ML 500 ML IVPB SCH (12:47)
[2024-08-25] MEDS: GABAPENTIN 400 MG CAP PO SCH (16:43)
[2024-08-25] MEDS: RIVAROXABAN 20 MG TAB PO SCH (16:43)
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
[2024-08-25] MEDS: QUEtiapine 400 MG TAB PO SCH (22:46)
[2024-08-26] MEDS: NYSTAT-TRIAMCIN 100,000-0.1 UNIT/GM-% CREAM 30 GM TUBE TOPICAL SCH (01:13)
[2024-08-26 05:52] LABS: Basophils # (A) 0.05 10*3/uL (0.00-0.10); Basophils % (A) 0.7 %; Eosinophils # (A) 0.41 10*3/uL (0.04-0.35); Eosinophils % (A) 5.6 %; HCT 42.6 % (39.6-50.0); HGB 14.1 g/dL (13.0-17.0); Lymphocytes # (A) 2.03 10*3/uL (0.90-5.00); Lymphocytes % (A) 27.9 %; MCH 31.3 pg (27.0-32.0); MCHC 33.1 g/dL (32.0-37.0); MCV 94.5 fL (80.0-97.0); Mean Platelet Volume 9.1 fL (9.5-12.2); Monocytes # (A) 0.54 10*3/uL (0.20-1.00); Monocytes % (A) 7.4 %; Neutrophils # (A) 4.22 10*3/uL (1.80-7.70); Neutrophils % (A) 58.1 %; Platelet Count 305 10*3/uL (140-440); RBC 4.51 10*6/uL (4.40-5.60); RDW 13.1 % (11.5-14.5); WBC 7.27 10*3/uL (4.50-10.00)
[2024-08-26 06:03] LABS: African American GFR (CKD) >90 (>60 ml/min/1.73 sqM); Anion Gap 9 mmol/L; Blood Urea Nitrogen 6 mg/dL (9-20); Calcium 8.6 mg/dL (8.4-10.2); Carbon Dioxide 24 mmol/L (22-30); Chloride 103 mmol/L (98-107); Glucose 123 mg/dL (74-99); Magnesium 2.1 mg/dL (1.6-2.3); Non-African American GFR(CKD) >90 (>60 ml/min/1.73 sqM); Potassium 4.1 mmol/L (3.5-5.1); Sodium 136 mmol/L (137-145)
[2024-08-26 07:33] VITALS: BP 103/68; PULSE 80; RESP 16; TEMP 97.5
[2024-08-26] MEDS: FUROSEMIDE 20 MG TAB PO SCH (08:59)
[2024-08-26] MEDS: CITALOPRAM HYDROBROMIDE 20 MG TAB PO SCH (09:00)
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
[2024-08-26] MEDS ORDERED: VANCOMYCIN TROUGH DUE 1 EACH MISC MISCELLANE ONE (11:00)
[2024-08-26 11:17] LABS: African American GFR (CKD) >90 (>60 ml/min/1.73 sqM); Non-African American GFR(CKD) >90 (>60 ml/min/1.73 sqM)
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
--- NOTE | 2024-08-26 17:01 | P.PN ---
Subjective Progress Note Date: 08/26/24 Hospital Course: Patient is a 64-year-old male with hypertension, anxiety, bipolar disorder, depression, chronic wound on left ankle (seen by wound care nurse since September 2023), history of DVT (diagnosed 2022, on Xarelto unrecalled dose) , prescription drug abuse and current everyday smoker is here for evaluation of left lower extremity swelling and redness. Last 08/20, patient reported that he noticed his left lower extremity swell up gradually throughout the day. He then noticed redness in the area the following day. His symptoms did not improve and his wound care nurse advised him to seek care when he was evaluated today. He reported associated chest pain on the left upper chest area that is stabbing, nonradiating, 7/10 intensity at maximum, constant, worse with palpation of the area and improved with rest. He denied fever, chills, nausea, vomiting, palpitations, shortness of breath, calf pain or tenderness, lightheadedness, dizziness, focal weakness, changes in vision, recent illness or hospitalization. He has a chronic wound on his left ankle that poorly healed after he broke his ankle in May 2023. On admission: Vitals: Temperature 98.1 F, pulse rate 74, respiratory rate 20, blood pressure 132/80, O2 saturation 95% on room air Labs: WBC 9.64, hemoglobin 15, platelet count 242,000, troponin less than 0.012, proBNP less than 20, CRP 4.1, lactic acid 2. Imaging: Venous Doppler ultrasound of left leg shows partial compression seen from femoral vein through popliteal vein consistent with chronic nonocclusive DVT and enlarged inguinal lymph nodes seen in November 2021 and subcutaneous edema to the left calf. Tibia and fibula x-ray showed no acute fractures or osseous processes consistent with osteomyelitis. Subjective: Patient seen and examined at bedside. No acute events overnight. Patient states he wants to leave today. Pertinent positives and negatives as discussed above, a complete review of systems was performed and all other systems are negative. Vitals: Signs Reviewed Physical Exam: General: nontoxic, no distress, appears at stated age Derm: warm, dry, intact Head: atraumatic, normocephalic, symmetric Eyes: EOMI, anicteric sclera Mouth: no lip lesion, mucus membranes moist Cardiovascular: S1 S2 reg, no murmur, rubs, or gallops Lungs: CTA bilateral, no rhonchi, no rales, no accessory muscle use Abdominal: soft, non-tender to palpataion, no appreciable organomegaly Ext: muscle strength 5 out of 5 in all 4 extremities grossly, no gross muscle a trophy, no contractures, positive dorsalis pedis pulse bilateral, edema of left lower extremity with associated erythema surrounding a chronic left ankle wound extending from the dorsum of the foot to midcalf, purulent discharge noted from the ankle wound, tenderness and warmth noted on palpation of affected area of the left lower extremity Neuro: Alert, Oriented, CNII-XII grossly intact, gait normal Psych: well appearing, appropriate affect Data Received Today: Pertinent Labs: WBC 10.89, Hgb 14.9, platelet 325, Na 135, BUN 11, Cr 0.81 Imaging: N/a Assessment and Plan: 64M with chronic wound and history of DVT on anticoagulation here for evaluation of left lower extremity swelling and erythema surrounding the chronic wound due to cellulitis with associated chest pain. The patient is admitted with an anticipated greater than 2 midnight stay for evaluation of cellulitis. Active: #. Cellulitis of left lower extremity with possible osteomyelitis #. Chronic left ankle wound -Tibia and fibula x-ray, independently interpreted showed no acute fractures, metallic axel exited the distal fibula showing 2 transverse screws extending to the distal tibia which demonstrates surrounding lucency suggesting loosening -Vancomycin IV and ceftriaxone given in the ED. - Continue with cefepime 2 g IVPB every 8 hours and vancomycin IVPB every 12 hours, monitor for renal toxicity -Continue with pain control with Dilaudid IV -Blood cultures pending -Consult wound care Ortho following -ID follwing, will ask if he recommonds MRI vs PET scan #. Diabetes with hyperglycemia - Patient's A1c was 6.8 in April 2024 - Glucose 130 on admission - Check A1c -Hold home medications -Glucose Accu-Cheks ACHS -Initiate Insulin sliding scale ACHS -Monitor for hypoglycemia Chronic Conditions: #. Hypertension #. Anxiety #. Bipolar disorder #. Depression #. History of DVT #. Nicotine dependence -Resume home medications once reconciled -Nicotine patch offered. Counseled on smoking cessation Resolved: #. Chest pain, likely non-cardiac DVT ppx: Lovenox 40 SQ daily Code status: No code Anticipated discharge place: Pending clinical course Anticipated discharge time: Pending clinical course Omero Stratton MD PGY-1 IM Dictation was produced using [employer] dictation software. please excuse any grammatical, word or spelling errors. I have seen and evaluated the patient today. Discussed with the resident and agree with the residents finding and plan as documented in the resident's note. Changes highlighted in blue font. Objective - Vital Signs Vital signs: Vital Signs Temp 97.5 F L 08/26/24 07:00 Pulse 80 08/26/24 07:00 Resp 16 08/26/24 07:00 BP 103/68 08/26/24 07:00 Pulse Ox 96 08/26/24 07:00 FiO2 Intake & Output 08/25/24 08/26/24 08/26/24 18:59 06:59 18:59 Intake Total 720 Balance 720 Intake: Oral 720 Other: Voiding Method Toilet # Voids 2 1 # Bowel Movements 1 - Labs CBC & Chem 7: 08/26/24 05:08 08/26/24 10:46 Labs: Abnormal Lab Results - Last 24 Hours (Table) 08/25/24 08/26/24 08/26/24 Range/Units 05:48 05:08 05:08 MPV 9.1 L (9.5-12.2) fL Eosinophils # 0.41 H (0.04-0.35) 10*3/uL Sodium 136 L (137-145) mmol/L BUN 6 L (9-20) mg/dL Glucose 123 H (74-99) mg/dL Hemoglobin A1c 6.8 H (<=6.0) % Microbiology - Last 24 Hours (Table) 08/24/24 21:31 Blood Culture - Preliminary Blood
--- NOTE | 2024-08-26 17:32 | P.DS ---
Providers Date of admission: 08/24/24 22:50 Expected date of discharge: 08/26/24 Attending physician: Dee Ho MD Consults: 08/25/24 10:00 Consult Physician Routine Consulting Provider: Yen Gray Consult Reason/Comments: chronic wound, cellulitis Do you want consulting provider notified?: Yes 08/25/24 10:15 Consult Physician Routine Consulting Provider: Shayan Magdaleno Consult Reason/Comments: LLE hardware malfunction Do you want consulting provider notified?: Yes Primary care physician: Stated None Hospital Course: Patient left AMA. See progress note from earlier today. Plan - Discharge Summary New Discharge Prescriptions: No Action Finasteride 1 mg PO DAILY QUEtiapine [SEROquel] 400 mg PO HS Gabapentin [Neurontin] 800 mg PO TID Citalopram Hydrobromide [CeleXA] 40 mg PO DAILY oxyCODONE-APAP 7.5-325MG [Percocet 7.5-325 mg] 1 tab PO Q8H PRN PRN Reason: Pain Rivaroxaban [Xarelto] 20 mg PO DIRECTED Potassium Chloride ER [K-Dur 20] 20 meq PO DAILY Furosemide [Lasix] 20 mg PO DAILY Metoprolol Succinate (ER) [Toprol Xl] 25 mg PO DAILY Baclofen [Lioresal] 20 mg PO TID Cephalexin [Keflex] 500 mg PO QID Discharge Medication List Finasteride 1 mg PO DAILY 12/15/17 [History] Baclofen [Lioresal] 20 mg PO TID 11/02/20 [History] Citalopram Hydrobromide [CeleXA] 40 mg PO DAILY 11/02/20 [History] Gabapentin [Neurontin] 800 mg PO TID 11/02/20 [History] Metoprolol Succinate (ER) [Toprol Xl] 25 mg PO DAILY 11/02/20 [History] QUEtiapine [SEROquel] 400 mg PO HS 11/02/20 [History] Cephalexin [Keflex] 500 mg PO QID 08/25/24 [History] Furosemide [Lasix] 20 mg PO DAILY 08/25/24 [History] Potassium Chloride ER [K-Dur 20] 20 meq PO DAILY 08/25/24 [History] Rivaroxaban [Xarelto] 20 mg PO DIRECTED 08/25/24 [History] oxyCODONE-APAP 7.5-325MG [Percocet 7.5-325 mg] 1 tab PO Q8H PRN 08/25/24 [History] Follow up Appointment(s)/Referral(s): None,Stated [Primary Care Provider] - 1-2 days Discharge Disposition: LEFT AGAINST MEDICAL ADVICE
--- NOTE | 2024-08-27 11:33 | P.PN ---
Subjective Progress Note Date: 08/26/24 Principal diagnosis: Reason for follow-up is left lower extremity cellulitis Patient is a 64-year-old male with a past medical history difficult for DVT hypertension bipolar depression and anxiety in this patient who did have history of fracture to the right leg that has been treated surgically with underlying hardware presenting to the hospital for evaluation of increasing swelling or redness to the left lower extremity, patient be diagnosed with a cellulitis prompted this consultation. On today's evaluation that is 08/26/2024,the patient denies any fever or any chills, patient is breathing comfortably on room air, the patient denies chest pain shortness of breath and no significant cough, patient denies abdominal pain, no nausea vomiting or diarrhea. Left leg swelling redness has decreased no drainage. The patient white count 7.27, creatinine 0.74 blood culture so far pending Objective - Vital Signs Vital signs: Vital Signs Temp 97.5 F L 08/26/24 07:00 Pulse 80 08/26/24 07:00 Resp 16 08/26/24 07:00 BP 103/68 08/26/24 07:00 Pulse Ox 96 08/26/24 07:00 FiO2 Intake & Output 08/25/24 08/26/24 08/26/24 18:59 06:59 18:59 Intake Total 720 Balance 720 Intake: Oral 720 Other: Voiding Method Toilet Toilet # Voids 2 1 # Bowel Movements 1 - Exam GENERAL DESCRIPTION: Middle-age male lying in bed in no distress RESPIRATORY SYSTEM: Unlabored breathing , decreased breath sounds at bases HEART: S1 S2 regular rate and rhythm , ABDOMEN: Soft , no tenderness EXTREMITIES: Left leg with diffuse swelling and redness slightly decreased in intensity - Labs CBC & Chem 7: 08/26/24 05:08 08/26/24 10:46 Labs: Abnormal Lab Results - Last 24 Hours (Table) 08/26/24 08/26/24 Range/Units 05:08 05:08 MPV 9.1 L (9.5-12.2) fL Eosinophils # 0.41 H (0.04-0.35) 10*3/uL Sodium 136 L (137-145) mmol/L BUN 6 L (9-20) mg/dL Glucose 123 H (74-99) mg/dL Microbiology - Last 24 Hours (Table) 08/24/24 21:31 Blood Culture - Preliminary Blood Assessment and Plan (1) Left leg cellulitis Status: Acute Code(s): L03.116 - CELLULITIS OF LEFT LOWER LIMB SNOMED C ode(s): [id number] Plan: 1patient with complicated history of fracture left leg fracture with underlying hardware now presenting with the increasing swelling and redness to left lower extremity and also have chronic nonhealing wound with concern for possible hardware infection with secondary cellulitis and will need to cover for the gram-positive skin jayce as well as gram-negative pathogen 2-blood culture has been obtained that will guide further antibiotic therapy will benefit from an MRI to make sure no evidence of any osteomyelitis this was discussed with the resident physician 3patient will be treated with vancomycin and cefepime while waiting for the culture to finalize Question concern answered Dictation was produced using [employer] dictation software. please excuse any grammatical, word or spelling errors. Time with Patient: Greater than 30
== END 2024-08-26 11:42 | disposition left against medical advice (07) | DRG 603 ==
LOC: EC 20:24 → 6NMEDSUR 22:50 → OBSVTOIN 22:50 → 6NMEDSUR 23:28 → OBSVTOIN 08-25 10:00 → INTOOBSV 08-25 10:00
PROVIDERS: ADMIT Internal Medicine; ATTEND Internal Medicine
DX: L03.116 Cellulitis of left lower limb (principal); L97.322 Non-pressure chronic ulcer of left ankle with fat layer exposed; E11.69 Type 2 diabetes mellitus with other specified complication; F31.9 Bipolar disorder, unspecified; I10 Essential (primary) hypertension; M86.162 Other acute osteomyelitis, left tibia and fibula; L98.492 Non-pressure chronic ulcer of skin of other sites with fat layer exposed; E11.65 Type 2 diabetes mellitus with hyperglycemia; F41.9 Anxiety disorder, unspecified; F17.210 Nicotine dependence, cigarettes, uncomplicated; R07.89 Other chest pain; Z86.718 Personal history of other venous thrombosis and embolism; Z71.6 Tobacco abuse counseling; Z53.29 Procedure and treatment not carried out because of patient's decision for other reasons; Z79.01 Long term (current) use of anticoagulants; Z79.899 Other long term (current) drug therapy; Z82.49 Family history of ischemic heart disease and other diseases of the circulatory system; Z91.030 Bee allergy status
CPT/HCPCS: 36415; 80048; 80053; 80202; 82565; 83036; 83605; 83735; 83880; 84100; 84484; 85025; 85610; 85730; 86140; 87040; 87070; 87205; 93005; 96365; 96375; 99285

== ENCOUNTER 2024-11-10 07:23 | Observation (INO) | payer MEDICARE ==
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
[2024-11-10] MEDS: HYDROmorphone 0.5 MG/0.5 ML SYRINGE IVP STA (08:00)
[2024-11-10 08:25] LABS: Basophils # (A) 0.06 10*3/uL (0.00-0.10); Basophils % (A) 0.5 %; Eosinophils # (A) 0.39 10*3/uL (0.04-0.35); Eosinophils % (A) 3.5 %; HCT 44.3 % (39.6-50.0); HGB 15.1 g/dL (13.0-17.0); Lymphocytes # (A) 2.61 10*3/uL (0.90-5.00); Lymphocytes % (A) 23.2 %; MCH 31.9 pg (27.0-32.0); MCHC 34.1 g/dL (32.0-37.0); MCV 93.7 fL (80.0-97.0); Monocytes # (A) 0.77 10*3/uL (0.20-1.00); Monocytes % (A) 6.9 %; Neutrophils # (A) 7.37 10*3/uL (1.80-7.70); Neutrophils % (A) 65.5 %; Platelet Count 327 10*3/uL (140-440); RBC 4.73 10*6/uL (4.40-5.60); RDW 13.5 % (11.5-14.5); WBC 11.24 10*3/uL (4.50-10.00)
[2024-11-10 08:42] LABS: ALT 21 U/L (4-49); AST 33 U/L (17-59); African American GFR (CKD) >90 (>60 ml/min/1.73 sqM); Albumin 3.3 g/dL (3.5-5.0); Alkaline Phosphatase 81 U/L (38-126); Anion Gap 9 mmol/L; Blood Urea Nitrogen 12 mg/dL (9-20); Calcium 7.6 mg/dL (8.4-10.2); Carbon Dioxide 22 mmol/L (22-30); Chloride 111 mmol/L (98-107); Glucose 117 mg/dL (74-99); Non-African American GFR(CKD) >90 (>60 ml/min/1.73 sqM); Potassium 3.5 mmol/L (3.5-5.1); Sodium 142 mmol/L (137-145); Total Protein 6.1 g/dL (6.3-8.2)
--- NOTE | 2024-11-10 08:45 | CT ---
EXAMINATION TYPE: CT brain wo con CT DLP: 1186.4 mGycm, Automated exposure control for dose reduction was used. DATE OF EXAM: 11/10/2024 8:38 AM COMPARISON: CT brain C-spine 07/28/2017 CLINICAL INDICATION:Male, 64 years old with history of fall, fall, pain TECHNIQUE: Brain: Multiple axial CT images of the brain were obtained without IV contrast. . Coronal and sagitta l reformats reviewed. FINDINGS: Brain: Extra-axial spaces: No abnormal extra-axial fluid collections. Ventricular system: Within normal limits Cerebral parenchyma: No acute intraparenchymal hemorrhage or mass effect. The bergeron-white junction is well differentiated. Cerebellum: Unremarkable. Mass effect: No evidence of midline shift. Intracranial vasculature: unremarkable Soft tissues: Normal. Calvarium/osseous structures: No depressed skull fracture. Incidental incomplete fusion of the inspector receiving ior arch of C1. Paranasal sinuses and mastoid air cells: Clear Visualized orbits: Orbital contents are intact. IMPRESSION: No acute intracranial process. [facility], , 11/10/2024 8:42 AM
[2024-11-10] MEDS: SODIUM CHLORIDE 0.9% 500 ML 500 ML IV ONE (09:04)
[2024-11-10] MEDS: SODIUM CHLORIDE 0.9% 1,000 ML IV ONE (09:20)
--- NOTE | 2024-11-10 09:25 | US ---
EXAMINATION TYPE: US venous doppler duplex LE LT DATE OF EXAM: 11/10/2024 9:06 AM COMPARISON: US 08/24/2024, 11/02/2020 CLINICAL INDICATION: Male, 64 years old with history of swelling and warmth; Hx of DVT. Swelling and warmth. Patient is on Xarelto. TECHNIQUE: The lower extremity deep venous system is examined utilizing real time linear array sonog ainsley with graded compression, color doppler sonography, and spectral doppler. SIDE PERFORMED: Left FINDINGS: VESSELS IMAGED: Common Femoral Vein Deep Femoral Vein Greater Saphenous Vein * Femoral Vein Popliteal Vein Small Saphenous Vein * Proximal Calf Veins (* superficial vessels) Left Leg: Internal echoes seen in femoral vein mid and distal, and in popliteal vein. Veins partial ly compress at these levels. Color defect/lack of flow seen in mid and distal femoral vein and poplit eal vein. Hypoechoic area with hyperechoic center seen in the left groin: 3.0 x 3.0 x 2.7 cm. Peroneal veins were obscured - great amount of edema seen. IMPRESSION: 1. Chronic nonocclusive deep venous thrombosis redemonstrated within the left lower extremity involvi ng the femoral and popliteal veins. Poor visualization of the peroneal veins due to edema. No definit peter new acute deep venous thrombosis. 2. Stable enlarged nonspecific left inguinal lymph node. [facility], , 11/10/2024 9:23 AM
[2024-11-10] MEDS ORDERED: VANCOMYCIN IV PER PHARMACY 1 EACH MISC MISCELLANE PRN (09:49)
[2024-11-10] MEDS ORDERED: ACETAMINOPHEN TAB 325 MG TAB PO PRN (10:19)
[2024-11-10] MEDS: CEFEPIME 1 GM in SODIUM CHLORIDE 0.9% 50 ML IVPB ONE (10:21)
[2024-11-10] MEDS: VANCOMYCIN 1,750 MG in SODIUM CHLORIDE 0.9% 500 ML 500 ML IVPB STA (11:04)
[2024-11-10] MEDS: SODIUM CHLORIDE 0.9% 1,000 ML IV SCH (11:04)
[2024-11-10] MEDS ORDERED: ALPRAZolam 0.25 MG TAB PO PRN (11:53)
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
[2024-11-10] MEDS: oxyCODONE-APAP 7.5-325MG 1 EACH TAB PO PRN (12:19)
[2024-11-10] MEDS: ENOXAPARIN 40 MG/0.4 ML SYRINGE SQ STA (15:20)
[2024-11-10] MEDS: NALOXONE 0.4 MG/ML 1 ML VIAL IV PRN (16:38)
[2024-11-10 17:18] LABS: ABG HCO3 28 mmol/L (21-25); ABG PCO2 47 mmHg (35-45); ABG PH 7.38 (7.35-7.45); ABG PO2 77 mmHg (83-108); ABG TCO2 30 mmol/L (19-24); Allen Test Performed? Yes
[2024-11-10] MEDS: BACLOFEN 10 MG TAB PO SCH (17:36)
[2024-11-10] MEDS: RIVAROXABAN 20 MG TAB PO SCH (18:33)
[2024-11-10 18:41] LABS: Barbiturate Screen,Urine Not Detected (NotDetected); Benzodiazepines Screen,Urine Detected (NotDetected); Opiate Screen,Urine Not Detected (NotDetected); Oxycodone Screen, Urine Detected (NotDetected); Phencyclidine Screen,Urine Not Detected (NotDetected); Tricyclic Antidepressant,Urine Not Detected (NotDetected); Urn Cannabinoid Scrn Not Detected (NotDetected)
[2024-11-10 18:43] LABS: Bilirubin,Urine Negative (Negative); Blood,Urine Negative (Negative); Color,Urine Colorless; Glucose,Urine (UA) Negative (Negative); Ketones,Urine Negative (Negative); Leukocyte Esterase,Urine Negative (Negative); Nitrite,Urine Negative (Negative); PH, Urine 6.0 (5.0-8.0); Protein,Urine Negative (Negative); Specific Gravity,Urine 1.006 (1.001-1.035); Urobilinogen,Urine <2.0 mg/dL (<2.0)
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
[2024-11-10] MEDS: VANCOMYCIN 1,750 MG in SODIUM CHLORIDE 0.9% 500 ML 500 ML IVPB SCH (19:41)
[2024-11-10] MEDS: QUEtiapine 400 MG TAB PO SCH (23:30)
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
[2024-11-10] MEDS: FAMOTIDINE 20 MG/2 ML VIAL IV SCH (23:48)
[2024-11-11 07:59] VITALS: BP 142/85; PULSE 62; RESP 16; TEMP 97.6
[2024-11-11 08:02] LABS: Basophils # (A) 0.05 X 10*3/uL (0.00-0.10); Basophils % (A) 0.5 %; Eosinophils # (A) 0.43 X 10*3/uL (0.04-0.35); Eosinophils % (A) 4.4 %; HCT 43.8 % (39.6-50.0); HGB 13.8 g/dL (13.0-17.0); Immature Grans, Automated 0.30 %; Lymphocytes # (A) 2.05 X 10*3/uL (0.90-5.00); Lymphocytes % (A) 20.7 %; MCH 30.5 pg (27.0-32.0); MCHC 31.5 g/dL (32.0-37.0); MCV 96.7 FL (80.0-97.0); Monocytes # (A) 0.49 X 10*3/uL (0.20-1.00); Monocytes % (A) 5.0 %; NRBC Per 100 WBC 0 X 10*3/uL (0.00-0.01); Neutrophils # (A) 6.83 X 10*3/uL (1.80-7.70); Neutrophils % (A) 69.1 %; Platelet Count 347 X 10*3/uL (140-440); RBC 4.53 X 10*6/uL (4.40-5.60); RDW 13.9 % (11.5-14.5); WBC 9.88 X 10*3/uL (4.50-10.00)
[2024-11-11 08:27] LABS: Anion Gap 10.00 mmol/L (4.00-12.00); BUN/Creat Ratio 8.75 Ratio (12.00-20.00); Blood Urea Nitrogen 7.0 mg/dL (9.0-27.0); Calcium 8.4 mg/dL (8.7-10.3); Carbon Dioxide 25.0 mmol/L (21.6-31.8); Chloride 108 mmol/L (96-109); Glucose 166 mg/dL (70-110); Potassium 3.9 mmol/L (3.5-5.5); Sodium 143 mmol/L (135-145)
[2024-11-11] MEDS ORDERED: CITALOPRAM HYDROBROMIDE 20 MG TAB PO SCH (09:00)
[2024-11-11] MEDS ORDERED: GABAPENTIN 400 MG CAP PO SCH (09:00)
[2024-11-11] MEDS ORDERED: RIVAROXABAN 20 MG TAB PO SCH (09:00)
[2024-11-11] MEDS ORDERED: FINASTERIDE 1 MG PO SCH (09:00)
[2024-11-11] MEDS ORDERED: METOPROLOL SUCCINATE (ER) 25 MG TAB.ER.24H PO SCH (09:00)
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
== END 2024-11-11 09:45 | disposition left against medical advice (07) ==
LOC: EC 07:23 → 6NMEDSUR 09:45
PROVIDERS: ADMIT Internal Medicine; ATTEND Internal Medicine
DX: I82.512 Chronic embolism and thrombosis of left femoral vein (principal); I82.532 Chronic embolism and thrombosis of left popliteal vein; L03.116 Cellulitis of left lower limb; Z53.29 Procedure and treatment not carried out because of patient's decision for other reasons; G92.8 Other toxic encephalopathy; I10 Essential (primary) hypertension; F31.70 Bipolar disorder, currently in remission, most recent episode unspecified; F41.9 Anxiety disorder, unspecified; F17.200 Nicotine dependence, unspecified, uncomplicated; E66.9 Obesity, unspecified; Z68.33 Body mass index [BMI] 33.0-33.9, adult; Z86.16 Personal history of COVID-19; Z91.199 Patient's noncompliance with other medical treatment and regimen due to unspecified reason; Z91.81 History of falling; Z79.899 Other long term (current) drug therapy; Z79.01 Long term (current) use of anticoagulants; Z82.49 Family history of ischemic heart disease and other diseases of the circulatory system
CPT/HCPCS: 96366 ×3; 96375 ×2; 96365; 96372; 99285; 51798; 36415; 36600; 80053; 80048; 82805; 83605; 85025 ×2; 81003; 87040; 80306; 93971; 70450; G0378 ×2; J0692; J1650; J1308; J2312; J3373 ×2